=== PATIENT | male | born 1995 | race Caucasian/White ===

== ENCOUNTER 2018-09-26 12:25 | Emergency (ER) | payer MEDICAID, SELFPAY ==
--- NOTE | 2018-09-26 12:28 | NUR.NOTE ---
pt is here with care provider from [facility] . on Wednesday while working on a transition the transmition 150 lbp dropped on his right hand ROM limited and moderate swelling
[2018-09-26 12:31] VITALS: BP 113/91; PULSE 110; RESP 18; TEMP 36.8; O2SAT 98
--- NOTE | 2018-09-26 12:41 | DI.RAD_ITS ---
SYMPTOMS/DIAGNOSIS: RIGHT HAND PAIN, RADIAL/POSTERIOR ASPECT, S/P CRUSH INJURY ON 09/24/18 RIGHT HAND: Three views were obtained. There is a mildly comminuted fracture of the base of the proximal phalanx of the index finger with mild displacement and dorsal angulation of the main distal fracture fragment. No additional fractures seen. The fracture does not appear to involve the articular surface of the bone.
--- NOTE | 2018-09-26 13:03 | W.ED.GENAD ---
Discharge Plan Disposition Patient Disposition: HOME Condition: Good Discharge Details Chief Complaint: Orthopedic Clinical Impression: Closed fracture of phalanx of right index finger Primary Care Provider: Flaquito David ED Provider: Colin Gaxiola [facility] Meds and New Rx's Prescriptions: Continued divalproex 250 mg tablet,delayed release (DR/EC) 500 mg PO BID Qty: 120 RF: 5 clonidine HCl 0.1 MG tablet 2 tab PO HS Qty: 60 RF: 0 dextroamphetamine-amphetamine [Adderall XR] 20 MG capsule,extended release 24hr 2 cap PO DAILY Qty: 30 RF: 0 fluvoxamine 100 MG tablet 1 tab PO HS Qty: 30 RF: 0 trazodone 50 MG tablet 1 tab PO HS Qty: 90 RF: 0 clonidine HCl 0.1 MG tablet extended release 12 hr 2 tab PO .AM RF: 0 ibuprofen 200 MG tablet 400 mg PO Q8H PRNQty: 30 RF: 0 Discharge Instructions Instructions: Finger Fracture (ED) Additional Instructions: Please keep your fingers gómez taped together at all times except when showering. Hand elevated. Use acetaminophen or ibuprofen for pain as needed. Follow-up with orthopedics in 1 week. Return to ED for increasing pain, numbness, or other concerns. Referrals: Cristi Skinner MD [ [facility] STAFF PHYSICIAN] - Discharge Data Discharge Date/Time-TO BE ENTERED AT DEPARTURE: 09/26/18 14:43 Medical Decision Making X-ray of the right hand is obtained. There is a nondisplaced fracture at the base of the proximal phalanges of the index finger. Case discussed with orthopedics, Dr. Skinner. Will gómez tape the index and long finger together for immobility. Follow-up with orthopedics in 1 week. Keep hand elevated. Ibuprofen or acetaminophen as needed for pain. Return to ED for any problems HPI General Mode of arrival: ambulatory. Date/Time Provider Initiated Documentation: 09/26/18 12:41. Limitations to Documentation: no limitations. Information obtained by: patient. HPI Narrative: Patient presents to ED with right hand pain and swelling after dropping a transmission on it over the weekend. He is left-hand dominant. Swelling has gone down but still quite painful. He denies any other injury. He has no wrist or arm pain. Related Data Home Medications Medication Instructions Recorded Confirmed clonidine HCl 2 tab PO HS #60 tab 08/26/12 08/15/18 dextroamphetamine-amphetamine 2 cap PO DAILY #30 cap 08/26/12 08/15/18 [Adderall XR] fluvoxamine 1 tab PO HS #30 tab 08/26/12 08/15/18 trazodone 1 tab PO HS #90 tab 08/26/12 08/15/18 clonidine HCl 2 tab PO .AM 09/08/13 08/15/18 ibuprofen 400 mg PO Q8H PRN #30 tab 09/03/17 08/15/18 divalproex 250 mg tablet,delayed 500 mg PO BID #120 tab NS 08/15/18 08/15/18 release Previous Rx's Medication Instructions Recorded ibuprofen 400 mg PO Q8H PRN #30 tab 09/03/17 divalproex 250 mg tablet,delayed 500 mg PO BID #120 tab NS 08/15/18 release Allergies Allergy/AdvReac Type Severity Reaction Status Date / Time amoxicillin Allergy Unknown Unverified 08/15/18 13:23 Cephalosporins Allergy Unknown Unverified 08/15/18 13:23 General Stated Complaint: Orthopedic RIDGE: 4 Review of Systems Musculoskeletal Comments: hand pain/swelling Integumentary/Breasts Reports wounds (abrasions) [facility] Medical History ADHD (Chronic) Anxiety (Chronic) Autism (Chronic) Depression (Chronic) OCD (obsessive compulsive disorder) (Chronic) PTSD (post-traumatic stress disorder) (Chronic) Social History Smoking/Tobacco Use Status: Never Alcohol Intake: never Drug use: Never Substance use type: does not use Do you feel safe at home: Yes Do you feel safe in your relationship?: Yes Exam Const General: cooperative, comfortable and no acute distress Orientation: alert and oriented x3 Skin Trauma: abrasion (right hand) and no lacerations Extrem Other: Right hand is swollen especially around the index and long finger region. He is unable to flex or extend the index finger in any meaningful way because of swelling. There is some bruising at the base of those 2 fingers. The wrist is normal with no tenderness and good range of motion. Course Vital Signs Temperature 98.2 F 09/26/18 12:31 Pulse 110 H 09/26/18 12:31 Respiratory Rate 18 05/06/19 12:31 Blood Pressure 113/91 H 09/26/18 12:31 Pulse Oximetry 98 09/26/18 12:31 Temperature 98.2 F 09/26/18 12:31 Temperature Source Skin 09/26/18 12:31 Pulse 110 H 09/26/18 12:31 Respiratory Rate 18 09/26/18 12:31 Respiratory Effort 09/26/18 12:34 Blood Pressure 113/91 H 09/26/18 12:31 Blood Pressure Position Sitting 09/26/18 12:31 Pulse Oximetry 98 09/26/18 12:31 Oxygen Delivery Method Room Air 09/26/18 12:31 Oxygen Flow Rate 0 09/26/18 12:31 Pain Level 5 09/26/18 12:31
--- NOTE | 2018-09-26 13:06 | ED.GENADUL_ITS ---
Discharge Plan Disposition Patient Disposition: HOME Condition: Good Discharge Details Chief Complaint: Orthopedic Clinical Impression: Closed fracture of phalanx of right index finger Primary Care Provider: Flaquito David ED Provider: Colin Gaxiola [facility] Meds and New Rx's Prescriptions: Continued divalproex 250 mg tablet,delayed release (DR/EC) 500 mg PO BID Qty: 120 RF: 5 clonidine HCl 0.1 MG tablet 2 tab PO HS Qty: 60 RF: 0 dextroamphetamine-amphetamine [Adderall XR] 20 MG capsule,extended release 24hr 2 cap PO DAILY Qty: 30 RF: 0 fluvoxamine 100 MG tablet 1 tab PO HS Qty: 30 RF: 0 trazodone 50 MG tablet 1 tab PO HS Qty: 90 RF: 0 clonidine HCl 0.1 MG tablet extended release 12 hr 2 tab PO .AM RF: 0 ibuprofen 200 MG tablet 400 mg PO Q8H PRNQty: 30 RF: 0 Discharge Instructions Instructions: Finger Fracture (ED) Additional Instructions: Please keep your fingers gómez taped together at all times except when shower ing. Hand elevated. Use acetaminophen or ibuprofen for pain as needed. Follow-up with orthopedics in 1 week. Return to ED for increasing pain, numbness, or other concerns. Referrals: Cristi Skinner MD [ [facility] STAFF PHYSICIAN] - Discharge Data Discharge Date/Time-TO BE ENTERED AT DEPARTURE: 09/26/18 14:43 Medical Decision Making X-ray of the right hand is obtained. There is a nondisplaced fracture at the base of the proximal phalanges of the index finger. Case discussed with orthopedics, Dr. Skinner. Will gómez tape the index and long finger together for immobility. Follow-up with orthopedics in 1 week. Keep hand elevated. Ibuprofen or acetaminophen as needed for pain. Return to ED for any problems HPI General Mode of arrival: ambulatory . Date/Time Provider Initiated Documentation: 09/26/18 12:41 . Limitations to Documentation: no limitations . Information obtained by: patient . HPI Narrative: Patient presents to ED with right hand pain and swelling after dropping a transmission on it over the weekend. He is left-hand dominant. Swelling has gone down but still quite painful. He denies any other injury. He has no wrist or arm pain. Related Data Home Medications Medication Instructions Recorded Confirmed clonidine HCl 2 tab PO HS #60 tab 08/26/12 08/15/18 dextroamphetamine-amphetamine 2 cap PO DAILY #30 cap 08/26/12 08/15/18 [Adderall XR] fluvoxamine 1 tab PO HS #30 tab 08/26/12 08/15/18 trazodone 1 tab PO HS #90 tab 08/26/12 08/15/18 clonidine HCl 2 tab PO .AM 09/08/13 08/15/18 ibuprofen 400 mg PO Q8H PRN #30 tab 09/03/17 08/15/18 divalproex 250 mg tablet,delayed 500 mg PO BID #120 tab NS 08/15/18 08/15/18 release Previous Rx's Medication Instructions Recorded ibuprofen 400 mg PO Q8H PRN #30 tab 09/03/17 divalproex 250 mg tablet,delayed 500 mg PO BID #120 tab NS 08/15/18 release Allergies Allergy/AdvReac Type Severity Reaction Status Date / Time amoxicillin Allergy Unknown Unverified 08/15/18 13:23 Cephalosporins Allergy Unknown Unverified 08/15/18 13:23 General Stated Complaint: Orthopedic RIDGE: 4 Review of Systems Musculoskeletal Comments: hand pain/swelling Integumentary/Breasts Reports wounds (abrasions) [facility] Medical History ADHD (Chronic) Anxiety (Chronic) Autism (Chronic) Depression (Chronic) OCD (obsessive compulsive disorder) (Chronic) PTSD (post-traumatic stress disorder) (Chronic) Social History Smoking/Tobacco Use Status: Never Alcohol Intake: never Drug use: Never Substance use type: does not use Do you feel safe at home: Yes Do you feel safe in your relationship?: Yes Exam Const General: cooperative, comfortable and no acute distress Orientation: alert and oriented x3 Skin Trauma: abrasion (right hand) and no lacerations Extrem Other: Right hand is swollen especially around the index and long finger region. He is unable to flex or extend the index finger in any meaningful way because of swelling. There is some bruising at the base of those 2 fingers. The wrist is normal with no tenderness and good range of motion. Course Vital Signs Temperature 98.2 F 09/26/18 12:31 Pulse 110 H 09/26/18 12:31 Respiratory Rate 18 09/26/18 12:31 Blood Pressure 113/91 H 09/26/18 12:31 Pulse Oximetry 98 09/26/18 12:31 Temperature 98.2 F 09/26/18 12:31 Temperature Source Skin 09/26/18 12:31 Pulse 110 H 09/26/18 12:31 Respiratory Rate 18 09/26/18 12:31 Respiratory Effort 09/26/18 12:34 Blood Pressure 113/91 H 09/26/18 12:31 Blood Pressure Position Sitting 09/26/18 12:31 Pulse Oximetry 98 09/26/18 12:31 Oxygen Delivery Method Room Air 09/26/18 12:31 Oxygen Flow Rate 0 09/26/18 12:31 Pain Level 5 09/26/18 12:31
[2018-09-26 14:43] VITALS: BP 113/91; PULSE 110; RESP 18; TEMP 36.6; O2SAT 98
== END 2018-09-26 14:43 | disposition home or self-care (01) ==
PROVIDERS: Emergency Provider Emergency Medicine; PCP Family Medicine
DX: S62.640A Nondisplaced fracture of proximal phalanx of right index finger, initial encounter for closed fracture (principal); W22.8XXA Striking against or struck by other objects, initial encounter
CPT/HCPCS: 26720; 73130

== ENCOUNTER 2018-11-01 09:54 | Outpatient (CLI) | payer MEDICAID, SELFPAY ==
--- NOTE | 2018-11-01 09:45 | DI.RAD_ITS ---
SYMPTOM/DIAGNOSIS: F/U FX RIGHT INDEX FINGER: When compared with the previous examination of 09/26/2018 there has been no change in the appositional alignment at the fracture site in the proximal metaphysis of the proximal phalanx of the index finger.
--- NOTE | 2018-11-02 12:50 | W.PREOPHP ---
Date of service: 11/02/18 Time of Service: 12:50 Assessment and Plan (1) Finger fracture, right: Current visit: Yes Status: Acute A// Dorsally displaced (30-35% angulation), proximal phalanx fracture of right index finger. Following an assessment by Dr. Skinner and discussion regarding the procedure, to prevent permanent deformity the patient has elected to have his right finger pinned to stabilize the fracture. P// Right index finger pinning with Dr. Skinner. Qualifiers: Finger: index finger Fracture alignment: displaced Fracture healing: with delayed healing Fracture type: closed Phalanx: proximal History of Present Illness Chief Complaint: Right index Finger Fracture Narrative: 23 y/o, left hand dominant, male with history of seizure disorder, autism, anxiety, depression, OCD, ADHD and PTSD presents for pre-op H&P for Right index finger pinning with Dr. Skinner following a crush injury in the beginning of September 2018. He is accompanied today by his transitions rn care coordinator. He was seen initially in the ER on 09/26/18 with a non-displaced fracture of his proximal phalanx that is extra-articular. He was seen in follow up in the Orthopedic Clinic and was instructed in gómez taping his index finger on 10/04/18. He returned to the clinic with complaints of continued pain in his right index finger at which time X-ray showed that his fracture had settled dorsally with 30-35% angulation and to prevent intermediate deformity pinning of his right finger was recommended. He reports that he has nocturnal seizures and is not aware of when these occur. His caregiver denies observing any recent seizure activity at night. Review of Systems Constitutional Denies chills, Denies fever(s), Denies frequent falls, Denies night sweats and Denies weight loss Eyes Denies loss of vision ENT Denies abnormal hearing, Denies dysphagia, Denies hearing loss, Denies nasal congestion and Denies neck pain Cardiovascular Denies chest pain at rest, Denies chest pain with activity, Denies syncope, Denies dyspnea, Denies dyspnea on exertion and Denies paroxysmal nocturnal dyspnea Respiratory Denies cough, Denies dyspnea and Denies dyspnea on exertion Gastrointestinal Denies abdominal pain, Denies melena, Denies hematochezia, Denies change in bowel habits, Denies constipation, Denies dysphagia and Denies diarrhea Genitourinary Denies urinary frequency, Denies urinary hesitancy and Denies urinary urgency Musculoskeletal Denies neck pain Integumentary/Breasts Denies bleeding lesions, Denies non-healing lesions, Denies rash and Denies unusual bruising Neurologic Denies abnormal hearing, Denies syncope, Denies frequent falls and Denies loss of vision Hematologic/Lymphatic Denies easy bleeding and Denies easy bruising PFSH Medical History History of fracture of finger (Resolved) History of wrist fracture (Resolved) ADHD (Chronic) Anxiety (Chronic) Autism (Chronic) Depression (Chronic) OCD (obsessive compulsive disorder) (Chronic) PTSD (post-traumatic stress disorder) (Chronic) Social History Smoking/Tobacco Use Status: Never Alcohol Intake: never Drug use: Never Substance use type: does not use Do you feel safe at home: Yes Do you feel safe in your relationship?: Yes Meds Home Medications Medication Instructions Recorded Confirmed Type clonidine HCl 2 tab PO HS #60 tab 08/26/12 11/01/18 History dextroamphetamine-amphetamine 2 cap PO DAILY #30 cap 08/26/12 11/02/18 History [Adderall XR] fluvoxamine 1 tab PO HS #30 tab 08/26/12 11/02/18 History trazodone 1 tab PO HS #90 tab 08/26/12 11/02/18 History clonidine HCl 2 tab PO .AM 09/08/13 11/02/18 History ibuprofen 400 mg PO Q8H PRN #30 tab 09/03/17 11/02/18 Rx divalproex 250 mg tablet,delayed 500 mg PO BID #120 tab NS 08/15/18 11/02/18 Rx release cholecalciferol (vitamin D3) 1,000 unit PO DAILY 11/02/18 11/02/18 History [Vitamin D3] Allergies Allergy/AdvReac Type Severity Reaction Status Date / Time amoxicillin Allergy Unknown Unverified 11/01/18 12:52 Cephalosporins Allergy Unknown Unverified 11/02/18 12:51 Exam Const General: cooperative, healthy appearing and no acute distress Orientation: alert and oriented x3 HENMT Head: normal to inspection, no abrasions and no raccoon eyes Ears: hearing grossly normal bilaterally General nose exam: external nose normal and no nasal discharge noted Resp Effort & Inspection: normal respiratory effort, no audible wheezes and no cough Auscultation: clear to auscultation bilaterally Cardio Jugular venous pressure: no JVD Rate: regular rate Rhythm: regular rhythm Heart Sounds: S1 normal, S2 normal, no click and no murmurs GI Inspection: normal to inspection and non-distended Palpation: soft, no guarding and nontender Auscultation: normal bowel sounds Skin Lesions: no lesions (small cuts on his finger tips of his right hand ) Rashes: rash noted Neuro General: alert, oriented x3 and gait normal Cognition: normal cognition Speech: speech normal Extrem General: normal to inspection Right upper extremity: hand (Right- Index finger; (+) swelling )
== END 2018-11-01 10:14 ==
PROVIDERS: PCP Family Medicine; Visit Provider Physician Assistant Surgical
DX: S62.640D Nondisplaced fracture of proximal phalanx of right index finger, subsequent encounter for fracture with routine healing (principal)
CPT/HCPCS: NC; 73140

== ENCOUNTER 2018-11-02 12:30 | Day surgery (SDC) | payer MEDICAID, SELFPAY ==
[2018-11-02 12:58] VITALS: BP 139/87; PULSE 77; RESP 18; TEMP 36.8; O2SAT 96
[2018-11-02] MEDS: Lactated Ringers 1,000 ML 80 ML IV (13:08)
--- NOTE | 2018-11-02 13:10 | DI.RAD_ITS ---
SYMPTOMS/DIAGNOSIS: DORSALLY DISPLACED PROXIMAL PHALANX FX, RIGHT INDEX FINGER RIGHT FINGER: Comparison is 11/01/18. Fluoroscopy was utilized by Dr. Skinner during the percutaneous pinning of the fracture involving the proximal phalanx of the right index finger. Please refer to the procedure report for complete details.
[2018-11-02] MEDS: ceFAZolin 1 GM/50 ML BAG IVPB (14:20)
--- NOTE | 2018-11-02 15:06 | W.PM.DSUDISC ---
Discharge Plan Disposition Patient Disposition: HOME Condition: Good Discharge Details Reason For Visit: closed red/perc pinning Fx prox phalanx RIF Attending Provider: Cristi Skinner Primary Care Provider: Flaquito David [facility] Meds and New Rx's Prescriptions: New hydrocodone-acetaminophen 5-325 mg tablet 1 tab PO Q6H PRN (Reason: pain) Qty: 7 RF: 0 No Action divalproex 250 mg tablet,delayed release (DR/EC) 500 mg PO BID Qty: 120 RF: 5 clonidine HCl 0.1 MG tablet 2 tab PO HS Qty: 60 RF: 0 dextroamphetamine-amphetamine [Adderall XR] 20 MG capsule,extended release 24hr 2 cap PO DAILY Qty: 30 RF: 0 fluvoxamine 100 MG tablet 1 tab PO HS Qty: 30 RF: 0 trazodone 50 MG tablet 1 tab PO HS Qty: 90 RF: 0 clonidine HCl 0.1 MG tablet extended release 12 hr 2 tab PO .AM RF: 0 ibuprofen 200 MG tablet 400 mg PO Q8H PRNQty: 30 RF: 0 cholecalciferol (vitamin D3) [Vitamin D3] 1,000 unit Capsule 1,000 unit PO DAILY RF: 0 Discharge Instructions Additional Instructions: Elevate R hand above heart level as much as possible overnite tonite. Keep dressings and splint dry and intact until return. Cover with plastic bag sealed with large rubber band around the forearm to shower. Follow up with in 2 weeks. Take tylenol or ibuprofen for mild pain. Take hydrocodone for breakthru pain, if needed. Referrals: Cristi Skinner MD [ [facility] STAFF PHYSICIAN] - (f/u in 2 weeks.) Equipment/Supplies: Splint Activity:: Activity as Tolerated Remove Dressings/Wound Care:: Do Not Remove Shower/Bathe:: Cover Diet:: As Tolerated Discharge Orders Discharge Orders: Discharge Order (Routine); Ordered 11/02/18 Ordered By: Cristi Skinner DS: Diagnosis Discharge Diagnosis (1) Finger fracture, right: Status: Acute
[2018-11-02 15:21] VITALS: BP 107/64; PULSE 51; RESP 13; TEMP 36.2; O2SAT 100
[2018-11-02 15:26] VITALS: BP 117/74; PULSE 56; RESP 16; TEMP 36.2; O2SAT 100
[2018-11-02 15:31] VITALS: BP 126/80; PULSE 59; RESP 16; TEMP 36.2; O2SAT 99
[2018-11-02 15:45] VITALS: BP 121/80; PULSE 62; RESP 12; TEMP 36.4; O2SAT 100
[2018-11-02 16:15] VITALS: BP 128/81; PULSE 63; RESP 16; TEMP 36.3; O2SAT 100
[2018-11-02] MEDS: Acetaminophen 325 MG TAB 650 MG PO (16:22)
--- NOTE | 2018-11-03 07:07 | ROE_ITS ---
REPORT OF OPERATIVE PROCEDURE DATE OF PROCEDURE November 02, 2018 PREOPERATIVE DIAGNOSIS: Displaced fracture proximal phalanx, right index finger. POSTOPERATIVE DIAGNOSIS: Displaced fracture proximal phalanx, right index finger. PROCEDURES: Closed reduction and percutaneous pinning of fracture proximal phalanx of the right index finger. Application of short arm splint. ANESTHESIA: General, Pina Woods C.R.N.A. SURGEON: Cristi Skinner M.D. INDICATIONS: This is a 23-year-old developmentally delayed young man who sustained an extraarticular fracture to t he base of the right index finger approximately four weeks ago. The fracture was well alined at that time. His index finger was gómez taped to his middle finger and he was told to continue this treatmen t for four to five weeks. The patient was seen in followup and it was noted that he had not been comp liant with gómez taping. He was then noted to have a swan neck-type of deformity of the finger due to hyperextension of the index finger at the fracture site. There was apex volar angulation measuring 3 0 degrees at the fracture site. On exam, I could correct the angulation because there was still motio n through the fracture site. Furthermore, when the MP joint is flexed, the patient was able to active ly extend his PIP joint and correct the [place] deformity. I explained to Denis and his mother, rodney salazar the deformity of the PIP joint was secondary to the hyperextension at the fracture. The fracture ne eded to be reduced to restore full function to the right index finger. There was enough motion throug h the fracture site that I felt that I could accomplish this with closed reduction and percutaneous p inning of the fracture. They agreed with my recommendations. PROCEDURE DESCRIPTION: The patient was taken to the Operating Room on 11/02/18. He was placed supine on the Operating Table a nd a general anesthetic was administered. The right hand and forearm were prepped and draped free in the usual sterile fashion. Using mini C-arm image intensification control, I performed a closed reduction clinically reducing th e apex volar angulation of the proximal phalanx fracture. I flexed the proximal phalanx of the MP chaya nt to about 80 degrees or so. I then percutaneously placed a 0.062 K-wire from proximal to the distal across the metacarpal head, across the fracture site and into the proximal phalanx. Good position of the 0.062 K-wire was confirmed within the proximal phalanx, also confirmed that the fracture was wel l reduced. I then placed a 0.045 K-wire obliquely across the fracture, again percutaneously across th e metacarpal head into the proximal phalanx. This was to prevent rotation to the fracture. This pin w as confirmed to be within the bone and across the fracture with the mini C-arm image intensifier. At this point, I infiltrated around the pin sites and around the metacarpal neck with 0.5% Marcaine with epinephrine solution for postoperative analgesia. Using an #11-blade, I performed releasing incisions around the pins. The pin sites were dressed with Xeroform gauze. I cut the pins short and applied Pin Balls. With the MP joint transfixed, I was able to get full passive extension of the PIP joint. The pins were then padded with gauze 4x4s, and then fluff gauze 4x4s were placed between the fingers and wrapped with a Kerlix bandage. A volar fiberglas s splint was then applied supporting the fingers in the intrinsic Plus position at the MP joint. The splint was fashioned so it carried around the radial side of the index finger. The splint was applied with a 3-inch Jaylen bandage. The patient's anesthesia was reversed without complication. He was discharged to the Recovery Room in good condition. The patient was discharged home from the Day Surgery Unit when fully recovered from his general anest hesia. Instructions were given to his caretakers to keep the splint and dressings dry and intact, and in nerissa ce until he follows up in the office in two weeks. They are instructed to try to elevate his right dominguez nd above heart level as much as possible overnight tonight. He will take ibuprofen and Tylenol for mild pain. He was given a prescription for breakthrough pain o f hydrocodone with APAP 5/325, 1 tablet every 6 hours as needed.
== END 2018-11-02 17:02 | disposition home or self-care (01) ==
PROVIDERS: PCP Family Medicine; Visit Provider Orthopaedic Surgery
PROC: (CPT 26727; principal; 2018-11-02 15:30)
DX: S62.610A Displaced fracture of proximal phalanx of right index finger, initial encounter for closed fracture (principal); X58.XXXA Exposure to other specified factors, initial encounter
CPT/HCPCS: 26735; 73140; J0690; J1885; J2250; J3010

== ENCOUNTER 2018-11-16 10:18 | Outpatient (CLI) | payer MEDICAID, SELFPAY ==
--- NOTE | 2018-11-16 10:15 | DI.RAD_ITS ---
SYMPTOMS/DIAGNOSIS: F/U PERCUTANEOUS PINNING RIGHT HAND: Two views were obtained and show pin fixation transfixing fracture fragments of the proximal phalanx of the index finger with no gross interval change in alignment in comparison with examination of 11/02 which was a C-arm study.
== END 2018-11-16 10:38 ==
PROVIDERS: PCP Family Medicine; Visit Provider Orthopaedic Surgery
DX: S62.640D Nondisplaced fracture of proximal phalanx of right index finger, subsequent encounter for fracture with routine healing (principal)
CPT/HCPCS: 73120

== ENCOUNTER 2018-11-27 22:59 | Inpatient (IN) | payer MEDICAID, SELFPAY ==
--- NOTE | 2018-11-27 23:14 | W.ED.GENAD ---
Discharge Plan Disposition Patient Disposition: [facility] INPATIENT Condition: Poor Discharge Details Chief Complaint: Orthopedic Clinical Impression: Finger fracture, right, Post-operative infection Primary Care Provider: Flaquito David ED Provider: Serenity Ramirez Home Meds and New Rx's Prescriptions: No Action divalproex 250 mg tablet,delayed release (DR/EC) 500 mg PO BID Qty: 120 RF: 5 clonidine HCl 0.1 MG tablet 2 tab PO HS Qty: 60 RF: 0 dextroamphetamine-amphetamine [Adderall XR] 20 MG capsule,extended release 24hr 2 cap PO DAILY Qty: 30 RF: 0 fluvoxamine 100 MG tablet 1 tab PO HS Qty: 30 RF: 0 trazodone 50 MG tablet 1 tab PO HS Qty: 90 RF: 0 clonidine HCl 0.1 MG tablet extended release 12 hr 2 tab PO .AM RF: 0 ibuprofen 200 MG tablet 400 mg PO Q8H PRNQty: 30 RF: 0 cholecalciferol (vitamin D3) [Vitamin D3] 1,000 unit Capsule 1,000 unit PO DAILY RF: 0 Medical Decision Making Patient is a 23-year-old male presenting today with chief complaint of right hand pain. Patient is left-hand dominant. Patient initially fractured his right hand on 09/26/2018. Subsequently underwent surgical intervention with pin placement for the fracture on 11/02/2018. He was last seen by orthopedics on 11/20/2018 at which time he has been reporting to heal well. Patient reports that pain began increasing yesterday. Is also noted swelling and erythema the dorsum of the hand. This is over the area of the patient's inserted hardware. Patient has a 2 pins in the dorsum aspect of the hand around distally through the second digit MCP joint. It is warm to the touch. No fluid can be expressed. Patient appears nontoxic and is afebrile. I am concerned for cellulitis, also concern for osteomyelitis given the placement of hardware. Feel the patient needs IV antibiotics. Plan to give IV vancomycin, x-ray, obtain labs. Will consult with hospitalist for admission with orthopedic consult tomorrow. X-ray reviewed by radiologist FINDINGS: Bones/joints: Healing fracture proximal second phalanx. Soft tissues: Soft tissue swelling around the surgical site. IMPRESSION: Soft tissue swelling. No evidence of soft tissue gas. Discussed these findings with the patient his caregiver. Patient currently receiving vancomycin. He is elevating ice in the hand. Plan to consult with hospitalist regarding possible admission for cellulitis with concern for bleeding of osteomyelitis. Labs concerning for a CRP of 5.3. No leukocytosis. GFR is over 60. Plan discussed with hospitalist regarding admission for continued IV antibiotics and orthopedic follow-up. Consulted with hospitalist who agrees to admission for continued antibiotics and monitoring of patient with concern for infected hardware HPI General Mode of arrival: ambulatory. Date/Time Provider Initiated Documentation: 11/27/18 23:14. Limitations to Documentation: no limitations. Information obtained by: patient, family (accompanied by home care provider) and RN notes reviewed. History of Present Illness 23 year old M presents to the emergency department with the chief complaint of right hand pain, described as severe, with intensity rated at 10. Quality is described as aching, and is localized to the right and upper extremity. Patient reports no radiation. Patient started experiencing this day(s) (1) and it has been constant. No relieving factors improve symptom(s), No exacerbating factors reported . Patient notes rash; denies cough, fever/chills, loss of appetite, nausea/vomiting, shortness of breath and weakness. Patient did receive the following treatments prior to arrival, none Related Data Home Medications Medication Instructions Recorded Confirmed clonidine HCl 2 tab PO HS #60 tab 08/26/12 11/27/18 dextroamphetamine-amphetamine 2 cap PO DAILY #30 cap 08/26/12 11/27/18 [Adderall XR] fluvoxamine 1 tab PO HS #30 tab 08/26/12 11/27/18 trazodone 1 tab PO HS #90 tab 08/26/12 11/27/18 clonidine HCl 2 tab PO .AM 09/08/13 11/27/18 ibuprofen 400 mg PO Q8H PRN #30 tab 09/03/17 11/27/18 divalproex 250 mg tablet,delayed 500 mg PO BID #120 tab NS 08/15/18 11/27/18 release cholecalciferol (vitamin D3) 1,000 unit PO DAILY 11/02/18 11/27/18 [Vitamin D3] Previous Rx's Medication Instructions Recorded ibuprofen 400 mg PO Q8H PRN #30 tab 09/03/17 divalproex 250 mg tablet,delayed 500 mg PO BID #120 tab NS 08/15/18 release Allergies Allergy/AdvReac Type Severity Reaction Status Date / Time amoxicillin Allergy Unknown Unverified 11/16/18 10:11 Cephalosporins Allergy Unknown Unverified 11/16/18 10:11 General RIDGE: 4 Review of Systems Constitutional Reports as per HPI, Denies chills, Denies fever(s), Denies headache(s) and Denies weakness ENT Denies headache(s) Cardiovascular Reports as per HPI Respiratory Reports as per HPI and Denies cough Musculoskeletal Reports as per HPI and Denies tingling Integumentary/Breasts Reports as per HPI, Reports erythema and Reports skin swelling Neurologic Reports as per HPI, Denies headache(s), Denies tingling, Denies paresthesias and Denies weakness [facility] Medical History ADHD (Chronic) Anxiety (Chronic) Autism (Chronic) Depression (Chronic) OCD (obsessive compulsive disorder) (Chronic) PTSD (post-traumatic stress disorder) (Chronic) History of fracture of finger (Resolved) History of wrist fracture (Resolved) Social History Smoking/Tobacco Use Status: Never Alcohol Intake: never Drug use: Never Substance use type: does not use Do you feel safe at home: Yes Do you feel safe in your relationship?: Yes Exam Const General: cooperative, healthy appearing, comfortable, no acute distress, well developed and well groomed Nutritional Appearance: average body habitus and well nourished Orientation: alert and awake Resp Effort & Inspection: normal respiratory effort, able to speak in complete sentences and no respiratory distress Cardio Rate: regular rate Rhythm: regular rhythm Skin General skin exam: erythema (dorsal right hand along radial side, extending down 2nd digit) Neuro General: alert and awake Cognition: normal cognition Speech: speech normal Gait: normal gait Motor: muscle tone normal throughout Sensory Exam: no sensory deficits noted Extrem Right upper extremity: normal capillary refill; abnormal to inspection (skin changes as above), ROM limited (pins in PIP 2nd digit immobilizig) and joint enlargement noted (swelling PIP joint) Psych Appearance: grossly normal and well kempt Mental Status: mental status grossly normal Speech and Movement: speech and movement normal
[2018-11-27 23:15] VITALS: BP 124/74; PULSE 81; RESP 16; TEMP 36.1; O2SAT 99
--- NOTE | 2018-11-27 23:19 | ED.GENADUL_ITS ---
Discharge Plan Disposition Patient Disposition: [facility] INPATIENT Condition: Poor Discharge Details Chief Complaint: Orthopedic Clinical Impression: Finger fracture, right, Post-operative infection Primary Care Provider: Flaquito David ED Provider: Serenity Ramirez Home Meds and New Rx's Prescriptions: No Action divalproex 250 mg tablet,delayed release (DR/EC) 500 mg PO BID Qty: 120 RF: 5 clonidine HCl 0.1 MG tablet 2 tab PO HS Qty: 60 RF: 0 dextroamphetamine-amphetamine [Adderall XR] 20 MG capsule,extended release 24hr 2 cap PO DAILY Qty: 30 RF: 0 fluvoxamine 100 MG tablet 1 tab PO HS Qty: 30 RF: 0 trazodone 50 MG tablet 1 tab PO HS Qty: 90 RF: 0 clonidine HCl 0.1 MG tablet extended release 12 hr 2 tab PO .AM RF: 0 ibuprofen 200 MG tablet 400 mg PO Q8H PRNQty: 30 RF: 0 cholecalciferol (vitamin D3) [Vitamin D3] 1,000 unit Capsule 1,000 unit PO DAILY RF: 0 Medical Decision Making Patient is a 23-year-old male presenting today with chief complaint of right hand pain. Patient is left-hand dominant. Patient initially fractured his right hand on 09/26/2018. Subsequently underwent surgical intervention with pin placement for the fracture on 11/02/2018. He was last seen by orthopedics on 11/20/2018 at which time he has been reporting to heal well. Patient reports that pain began increasing yesterday. Is also noted swelling and erythema the dorsum of the hand. This is over the area of the patient's inserted hardware. Patient has a 2 pins in the dorsum aspect of the hand around distally through the second digit MCP joint. It is warm to the touch. No fluid can be expressed. Patient appears nontoxic and is afebrile. I am concerned for cellulitis, also concern for osteomyelitis given the placement of hardware. Feel the patient needs IV antibiotics. Plan to give IV vancomycin, x-ray, obtain labs. Will consult with hospitalist for admission with orthopedic cons ult tomorrow. X-ray reviewed by radiologist FINDINGS: Bones/joints: Healing fracture proximal second phalanx. Soft tissues: Soft tissue swelling around the surgical site. IMPRESSION: Soft tissue swelling. No evidence of soft tissue gas. Discussed these findings with the patient his caregiver. Patient currently receiving vancomycin. He is elevating ice in the hand. Plan to consult with hospitalist regarding possible admission for cellulitis with concern for bleeding of osteomyelitis. Labs concerning for a CRP of 5.3. No leukocytosis. GFR is over 60. Plan discussed with hospitalist regarding admission for continued IV antibiotics and orthopedic follow-up. Consulted with hospitalist who agrees to admission for continued antibiotics and monitoring of patient with concern for infected hardware HPI General Mode of arrival: ambulatory . Date/Time Provider Initiated Documentation: 11/27/18 23:14 . Limitations to Documentation: no limitations . Information obtained by: patient, family (accompanied by home care provider) and RN notes reviewed . History of Present Illness 23 year old M presents to the emergency department with the chief complaint of right hand pain, described as severe, with intensity rated at 10. Quality is described as aching, and is localized to the right and upper extremity. Patient reports no radiation. Patient started experiencing this day(s) (1) and it has been constant. No relieving factors improve symptom(s), No exacerbating factors reported . Patient notes rash; denies cough, fever/chills, loss of appetite, nausea/vomiting, shortness of breath and weakness. Patient did receive the following treatments prior to arrival, none Related Data Home Medications Medication Instructions Recorded Confirmed clonidine HCl 2 tab PO HS #60 tab 08/26/12 11/27/18 dextroamphetamine-amphetamine 2 cap PO DAILY #30 cap 08/26/12 11/27/18 [Adderall XR] fluvoxamine 1 tab PO HS #30 tab 08/26/12 11/27/18 trazodone 1 tab PO HS #90 tab 08/26/12 11/27/18 clonidine HCl 2 tab PO .AM 09/08/13 11/27/18 ibuprofen 400 mg PO Q8H PRN #30 tab 09/03/17 11/27/18 divalproex 250 mg tablet,delayed 500 mg PO BID #120 tab NS 08/15/18 11/27/18 release cholecalciferol (vitamin D3) 1,000 unit PO DAILY 11/02/18 11/27/18 [Vitamin D3] Previous Rx's Medication Instructions Recorded ibuprofen 400 mg PO Q8H PRN #30 tab 09/03/17 divalproex 250 mg tablet,delayed 500 mg PO BID #120 tab NS 08/15/18 release Allergies Allergy/AdvReac Type Severity Reaction Status Date / Time amoxicillin Allergy Unknown Unverified 11/16/18 10:11 Cephalosporins Allergy Unknown Unverified 11/16/18 10:11 General RIDGE: 4 Review of Systems Constitutional Reports as per HPI, Denies chills, Denies fever(s), Denies headache(s) and Denies weakness ENT Denies headache(s) Cardiovascular Reports as per HPI Respiratory Reports as per HPI and Denies cough Musculoskeletal Reports as per HPI and Denies tingling Integumentary/Breasts Reports as per HPI, Reports erythema and Reports skin swelling Neurologic Reports as per HPI, Denies headache(s), Denies tingling, Denies paresthesias and Denies weakness [facility] Medical History ADHD (Chronic) Anxiety (Chronic) Autism (Chronic) Depression (Chronic) OCD (obsessive compulsive disorder) (Chronic) PTSD (post-traumatic stress disorder) (Chronic) History of fracture of finger (Resolved) History of wrist fracture (Resolved) Social History Smoking/Tobacco Use Status: Never Alcohol Intake: never Drug use: Never Substance use type: does not use Do you feel safe at home: Yes Do you feel safe in your relationship?: Yes Exam Const General: cooperative, healthy appearing, comfortable, no acute distress, well developed and well groomed Nutritional Appearance: average body habitus and well nourished Orientation: alert and awake Resp Effort & Inspection: normal respiratory effort, able to speak in complete sentences and no respiratory distress Cardio Rate: regular rate Rhythm: regular rhythm Skin General skin exam: erythema (dorsal right hand along radial side, extending down 2nd digit) Neuro General: alert and awake Cognition: normal cognition Speech: speech normal Gait: normal gait Motor: muscle tone normal throughout Sensory Exam: no sensory deficits noted Extrem Right upper extremity: normal capillary refill; abnormal to inspection (skin changes as above), ROM limited (pins in PIP 2nd digit immobilizig) and joint enlargement noted (swelling PIP joint) Psych Appearance: grossly normal and well kempt Mental Status: mental status grossly normal Speech and Movement: speech and movement normal
--- NOTE | 2018-11-27 23:40 | DI.RAD_ITS ---
SYMPTOM/DIAGNOSIS: CELLULITIS BONY HARDWARE 2&3 RIGHT HAND: 11/27 Three views were obtained. There are fixation pins transfixing the head of the 2nd metacarpal and proximal phalanx of the index finger. The previously described proximal phalangeal fracture again noted which appears to show increased healing with no change in alignment in comparison with examination of 11/16/18. There is soft tissue swelling of the base of the index finger. No additional significant findings.
[2018-11-28] VITALS (9 sets, daily range): BP systolic 111–143; BP diastolic 64–85; PULSE 70–88; RESP 14–20; TEMP 36.4–37; O2SAT 98–100
--- NOTE | 2018-11-28 00:10 | DI.VRAD_ITS ---
EXAM: XR Right Hand EXAM DATE/TIME: 11/27/2018 11:27 PM CLINICAL HISTORY: 23 years old, male; Finger(s) and hand; Right; Prior surgery; Surgery date: <1 month; Surgery type: Pinning of FX finger; Patient HX: Redness, swelling, and pain TECHNIQUE: Imaging protocol: XR Right hand. Views: 3 or more views. COMPARISON: CR XR hand RT limited 11/16/2018 10:25 AM FINDINGS: Bones/joints: Healing fracture proximal second phalanx. Soft tissues: Soft tissue swelling around the surgical site. IMPRESSION: Soft tissue swelling. No evidence of soft tissue gas. Dictated and Authenticated by: Pranav Wong MD. Ordering:MÓNICA Benton MD
[2018-11-28 00:18] LABS: Abs Immature Grans 0.02 k/cumm (0.0-0.09); Absolute Basophil Count 0.01 k/cumm (0.0-0.2); Absolute Eosinophil Count 0.07 k/cumm (0.0-0.7); Absolute Monocyte Count 1.34 k/cumm (0.11-0.7); Absolute Neutrophil Count 5.64 k/cumm (1.2-6.7); Basophils % 0.1; Eosinophils % 0.8; HCT 41.7 % (40.0-50.0); HGB 15.3 g/dL (13.5-17.5); Immature Grans % 0.2; Lymphocytes % 21.2; Mean Corp. HGB Concentration 36.7 g/dL (32.0-36.0); Mean Corpuscular Hemoglobin 32.2 pg (27.0-33.0); Mean Corpuscular Volume 87.8 fL (80-95); Mean Platelet Volume 12.5 fL (8.0-11.0); Monocytes % 14.9; Neutrophils % 62.8; Platelet Count 110 x1000/uL (130-400); RBC 4.75 m/cumm (4.50-6.00); RBC Distribution Width 12.5 % (11.8-14.1); White Blood Cell Count 8.98 k/cumm (4.4-10.8)
[2018-11-28] MEDS: VANCOMYCIN 1,000 MG in Normal Saline 250 ML 166.6666 MG IVPB (00:27)
[2018-11-28 00:36] LABS: Diff Comment RBC Morph Reviewed; RBC Morphology Normal
[2018-11-28 00:39] LABS: ALT 8 U/L (12-78); AST 10 U/L (15-37); Albumin 3.8 g/dL (3.4-5.0); Alkaline Phosphatase 60 U/L (46-116); Anion Gap 8.8 mmol/L (3-11); BUN 13 mg/dL (7-18); Bilirubin, Total 0.8 mg/dL (0.2-1.0); CO2 26.2 mmol/L (21.0-32.0); Calcium 9.1 mg/dL (8.5-10.1); Chloride 103 mmol/L (98-107); Glucose 106 mg/dL (70-100); Potassium 3.8 mmol/L (3.5-5.1); Sodium 138 mmol/L (136-145); Total Protein 7.6 g/dL (6.4-8.2)
--- NOTE | 2018-11-28 01:04 | W.PM.HP.N ---
Date of service: 11/28/18 Time of Service: 01:04 Assessment and Plan (1) Cellulitis and abscess of finger, unspecified: Start date: 11/27/18 Current visit: Yes Status: Acute This is a 23-year-old gentleman with rapidly progressive infection over his right index finger with percutaneous pins still in place for his displaced fracture of the proximal phalangeal base. He was started on vancomycin in the ED with some slight response over his hand erythema the persistent swelling and erythema over his fingers. We will continue on IV vancomycin and Dr. Skinner will be consulted morning. Plans were to remove his percutaneous pins this mid week. (2) Finger fracture, right: Current visit: Yes Status: Acute Initially nondisplaced and then displaced fracture of the proximal phalanx of the index finger requiring surgical intervention now with secondary infection. Concerns are across myelitis with foreign bodies in place. Patient will be given IV vancomycin with consultation with orthopedics in the morning as stated above. Qualifiers: Encounter type: subsequent encounter Finger: index finger Fracture alignment: displaced Fracture healing: with delayed healing Fracture type: closed Phalanx: proximal Qualified Code(s): S62.610G - Displaced fracture of proximal phalanx of right index finger, subsequent encounter for fracture with delayed healing History of Present Illness Chief Complaint: Numbness with increasing redness over right index finger Narrative: This is a 23-year-old gentleman who had recent fracture of the base of the proximal phalanx and his right index finger when a transmission fell on his finger sustaining a fracture which was non-displaced when first evaluated. He was treated with gómez taping which was not consistently applied and he eventually went to surgery for displacement and deformity of the index finger on November 03, 2018 for a closed reduction and percutaneous pinning. He was to have the pins removed this week on Friday November 30, 2018. He began to have numbness in his right index finger early Wednesday and Wednesday, the day of his emergency room visit, he began to have swelling and erythema over his index finger and then onto his dorsal hand with some discomfort. He reported to the ED with imaging showing no early signs of osteomyelitis or gas formation and his soft tissues and the fracture was still in alignment. He was given vancomycin and admitted for IV antibiotic therapy for cellulitis and possible early osteomyelitis with his pins in place or his previously displaced proximal phalanx fracture. Dr. Skinner did the procedure and will be consulted in the morning. He did have some resolution of the redness over the dorsum of his hand with 1 dose of IV vancomycin in the ED. Review of Systems Review of Systems 13 point review of systems otherwise unrevealing or stable. [facility] Medical History ADHD (Chronic) Anxiety (Chronic) Autism (Chronic) Depression (Chronic) OCD (obsessive compulsive disorder) (Chronic) PTSD (post-traumatic stress disorder) (Chronic) History of fracture of finger (Resolved) History of wrist fracture (Resolved) Social History Smoking/Tobacco Use Status: Never Alcohol Intake: never Drug use: Never Substance use type: does not use Do you feel safe at home: Yes Do you feel safe in your relationship?: Yes Meds Home Medications Medication Instructions Recorded Confirmed Type clonidine HCl 2 tab PO HS #60 tab 08/26/12 11/27/18 History dextroamphetamine-amphetamine 2 cap PO DAILY #30 cap 08/26/12 11/27/18 History [Adderall XR] fluvoxamine 1 tab PO HS #30 tab 08/26/12 11/27/18 History trazodone 1 tab PO HS #90 tab 08/26/12 11/27/18 History clonidine HCl 2 tab PO .AM 09/08/13 11/27/18 History ibuprofen 400 mg PO Q8H PRN #30 tab 09/03/17 11/27/18 Rx divalproex 250 mg tablet,delayed 500 mg PO BID #120 tab NS 08/15/18 11/27/18 Rx release cholecalciferol (vitamin D3) 1,000 unit PO DAILY 11/02/18 11/27/18 History [Vitamin D3] Allergies Allergy/AdvReac Type Severity Reaction Status Date / Time amoxicillin Allergy Unknown Unverified 11/16/18 10:11 Cephalosporins Allergy Unknown Unverified 11/16/18 10:11 Exam Narrative Exam Narrative: General: Patient is thin, in no acute distress and alert and oriented x3. Does have slight trembling and states he feels cold with no previous measured temperature in the ED but possibly having chills indicating body temperature change. HEENT: Normocephalic with eyes revealing pupils equal reactive light symmetrically with extraocular movement intact and sclera anicteric. Ears and nose normal. Oropharynx with pink oral mucosa. Neck: Supple without JVD. Lungs: Clear to auscultation percussion. Heart: Regular rate and rhythm without murmurs or gallops appreciated. Back: Without CVA tenderness with slightly stooped posture. Abdomen: Scaphoid, soft and nontender to palpation with no palpable hepatosplenomegaly. Bowel sounds positive in all quadrants. Genitalia/Rectal: Deferred. Extremities: Without clubbing, cyanosis or edema of lower extremities with upper extremities revealing right hand with swelling of the index and some over the middle finger with erythema and slight edema over the dorsum of the hand in the region of the first and second metatarsals just above the MCP joints. There are orthopedic percutaneous pens x2 inserted into the index finger protruding over the dorsum of the hand behind the MCP of the index finger. Capillary refill is good and radial pulses are intact. Skin: [place], warm and dry except as described over the right hand. Neuro: Cranial nerves II to XII are grossly intact, motor is grossly intact with sensory intact except for some numbness over his right index finger secondary to the infectious process and swelling. Psych: Normal mood and affect at the time of my exam with slightly pressured speech but no appearance of any inattentiveness. Results Imaging Imaging Studies: EXAM: XR Right Hand EXAM DATE/TIME: 11/27/2018 11:27 PM CLINICAL HISTORY: 23 years old, male; Finger(s) and hand; Right; Prior surgery; Surgery date: <1 month; Surgery type: Pinning of FX finger; Patient HX: Redness, swelling, and pain TECHNIQUE: Imaging protocol: XR Right hand. Views: 3 or more views. COMPARISON: CR XR hand RT limited 11/16/2018 10:25 AM FINDINGS: Bones/joints: Healing fracture proximal second phalanx. Soft tissues: Soft tissue swelling around the surgical site. IMPRESSION: Soft tissue swelling. No evidence of soft tissue gas. Dictated and Authenticated by: Pranav Wong MD. Labs : 11/27/18 23:59 11/27/18 23:59 Laboratory Results - last 24 hr 11/27/18 11/27/18 23:59 23:59 WBC 8.98 RBC 4.75 Hgb 15.3 Hct 41.7 MCV 87.8 MCH 32.2 MCHC 36.7 H RDW 12.5 Plt Count 110 L MPV 12.5 H Immature Gran % 0.2 Neutrophils % 62.8 Lymphocytes % 21.2 Monocytes % 14.9 Eosinophils % 0.8 Basophils % 0.1 Absolute Neutrophils 5.64 Absolute Lymphocytes 1.90 Absolute Monocytes 1.34 H Absolute Eosinophils 0.07 Absolute Basophils 0.01 Differential Comment Rbc morph reviewed RBC Morphology Normal Sodium 138 Potassium 3.8 Chloride 103 Carbon Dioxide 26.2 Anion Gap 8.8 BUN 13 Creatinine 0.80 Estimated GFR/1.73 m2 >= 60.00 Glucose 106 H Calcium 9.1 Total Bilirubin 0.8 AST 10 L ALT 8 L Alkaline Phosphatase 60 C-Reactive Protein 5.30 H Total Protein 7.6 Albumin 3.8 Last Vital Signs Temp 36.1 C L 11/27/18 23:15 Pulse 81 11/27/18 23:15 Resp 16 11/27/18 23:15 BP 124/74 11/27/18 23:15 Pulse Ox 99 11/27/18 23:15
[2018-11-28] MEDS: Ibuprofen 200 MG TAB 400 MG PO ×2 (03:43→10:23)
[2018-11-28 07:31] LABS: HCT 40.7 % (40.0-50.0); HGB 14.7 g/dL (13.5-17.5); Mean Corp. HGB Concentration 36.1 g/dL (32.0-36.0); Mean Corpuscular Volume 88.7 fL (80-95); Mean Platelet Volume 11.9 fL (8.0-11.0); Platelet Count 112 x1000/uL (130-400); RBC 4.59 m/cumm (4.50-6.00); RBC Distribution Width 12.6 % (11.8-14.1); White Blood Cell Count 6.35 k/cumm (4.4-10.8)
[2018-11-28 07:56] LABS: ALT 7 U/L (12-78); AST 6 U/L (15-37); Albumin 3.4 g/dL (3.4-5.0); Alkaline Phosphatase 56 U/L (46-116); Anion Gap 8.2 mmol/L (3-11); BUN 11 mg/dL (7-18); Bilirubin, Total 0.7 mg/dL (0.2-1.0); CO2 27.8 mmol/L (21.0-32.0); CREATININE 0.76 mg/dL (0.70-1.30); Calcium 8.8 mg/dL (8.5-10.1); Chloride 104 mmol/L (98-107); Glucose 93 mg/dL (70-100); Potassium 3.8 mmol/L (3.5-5.1); Sodium 140 mmol/L (136-145)
--- NOTE | 2018-11-28 08:25 | PDOC.CMIN ---
- If Service Date Differs Date of service: 11/28/18 Time of Service: 08:25 Care Management Initial Assess REASON FOR HOSPITALIZATION:: cellulitis and abscess of finger PAST MEDICAL HISTORY/PAST SURGICAL HISTORY:: Medical History . ADHD (Chronic). Anxiety (Chronic). Autism (Chronic). Depression (Chronic). OCD (obsessive compulsive disorder) (Chronic). PTSD (post-traumatic stress disorder) (Chronic). History of fracture of finger (Resolved). History of wrist fracture PREVIOUS FUNCTIONAL STATUS/SOCIAL/FAMILY SUPPORTS:: Denis lives in [place] with his critical care technician, Flaquito Virk, and one additional resident. He is currently unemployed. 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 Denis has a guardian through the Office of Public Guardians[employer]. Her name is Willard . CURRENT FUNCTIONAL STATUS:: Denis was visiting with his mother when CM came to visit. He was sitting up in bed watching television. He stated he did not mind being here because he has his own tv and can watch any show he chooses. Where he lives there is only a communal tv. Denis was pleasant and answered questions readily but did not maintain good eye contact. He frequently bowed his head down and seemed to be focusing on his hand. According to Mom Cesia, Denis receives SSI. She stated that she got ir started early because of his disabilities. Denis is independent with ADLs. ADVANCE DIRECTIVES:: None on file Has patient been provided with information about the portal?: No Did the patient sign up for the portal?: No CODE STATUS:: Full Code CODE STATUS COMMENT:: Denis has a guardian: Bessy Mayo INSURANCE COVERAGE / FINANCIAL ISSUES:: Medicaid Vt CURRENT HOME/COMMUNITY SERVICES/EQUIPMENT:: none currently PRIMARY CARE PHYSICIAN:: Flaquito David POTENTIAL DISCHARGE NEEDS:: Follow up with PCP and discharge plan of care PATIENT/FAMILY EDUCATION NEEDS:: Discharge plan, limitations, follow up plan and Ask Me Three. ANTICIPATED BARRIERS TO DISCHARGE:: none identified TRANSPORTATION:: via private vehicle with family when ready PLAN:: Denis remains acute level of care. He is receiving antibiotics for an infection in his right hand following surgery for a fracture with pin placement. He will likely be discharged home with no services when medically ready. CM to continue to support patient, family, care team and discharge planning process.
[2018-11-28] MEDS: Normal Saline Flush 10 ML SYR IVP ×6 (08:42→23:09)
[2018-11-28] MEDS: Normal Saline 500 ML IV (08:42)
[2018-11-28] MEDS: Divalproex 250 MG TABEC 500 MG PO ×2 (08:44→21:11)
--- NOTE | 2018-11-28 09:27 | INITIAL_ITS ---
- If Service Date Differs Date of service: 11/28/18 Time of Service: 08:25 Care Management Initial Assess REASON FOR HOSPITALIZATION:: cellulitis and abscess of finger PAST MEDICAL HISTORY/PAST SURGICAL HISTORY:: Medical History . ADHD (Chronic). Anxiety (Chronic). Autism (Chronic). Depression (Chronic). OCD (obsessive compulsive disorder) (Chronic). PTSD (post-traumatic stress disorder) (Chronic). History of fracture of finger (Resolved). History of wrist fracture PREVIOUS FUNCTIONAL STATUS/SOCIAL/FAMILY SUPPORTS:: Denis lives in [place] with his child care director, Flaquito Virk, and one additional resident. He is currently unemployed. 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 Denis has a guardian through the [employer] of Public [employer]. Her name is Willard . CURRENT FUNCTIONAL STATUS:: Denis was visiting with his mother when CM came to visit. He was sitting up in bed watching television. He stated he did not mind being here because he has his own tv and can watch any show he chooses. Where he lives there is only a communal tv. Denis was pleasant and answered questions readily but did not maintain good eye contact. He frequently bowed his head down and seemed to be focusing on his hand. According to Mom Cesia, Denis receives SSI. She stated that she got ir started early because of his disabilities. Denis is independent with ADLs. ADVANCE DIRECTIVES:: None on file Has patient been provided with information about the portal?: No Did the patient sign up for the portal?: No CODE STATUS:: Full Code CODE STATUS COMMENT:: Denis has a guardian: Bessy Mayo INSURANCE COVERAGE / FINANCIAL ISSUES:: Medicaid Vt CURRENT HOME/COMMUNITY SERVICES/EQUIPMENT:: none currently PRIMARY CARE PHYSICIAN:: Flaquito David POTENTIAL DISCHARGE NEEDS:: Follow up with PCP and discharge plan of care PATIENT/FAMILY EDUCATION NEEDS:: Discharge plan, limitations, follow up plan and Ask Me Three. ANTICIPATED BARRIERS TO DISCHARGE:: none identified TRANSPORTATION:: via private vehicle with family when ready PLAN:: Denis remains acute level of care. He is receiving antibiotics for an infection in his right hand following surgery for a fracture with pin placement. He will likely be discharged home with no services when medically ready. CM to continue to support patient, family, care team and discharge planning process.
[2018-11-28] MEDS: Acetaminophen 325 MG TAB PO (09:47)
[2018-11-28] MEDS: MORPHine 2 MG/ML SYR IVP ×2 (10:34→15:21)
[2018-11-28] MEDS: cloNIDine 0.1 MG TAB 0.2 MG PO ×2 (10:35→21:11)
--- NOTE | 2018-11-28 11:11 | PHARADMIT ---
Admission Pharmacy Clinical Review CELLULITIS RIGHT INDEX FINGER, STATUS POST PERCUTANEOUS Code Status Full Code Current Weight Wgt-69.3 kg Renally Cleared and Narrow Therapeutic Index Meds CrCl~ 139 mL/min Meds-OK QTc Value / Action Taken NONE BP Control, Fever BP- 113/70 max- 36.6C Electrolytes reviewed Na- 140 K+ 3.8 DVT Prophylaxis No (AGE) Opiate Usage / Scheduled Bowel Regimen Ordered No Yes Plt/SCr for Heparin / Enoxaparin Plts-112 SCr- 0.76 INR for Warfarin NA H/H stable, WBC/Bands H&H- 14.7/40.7 WBC- 6.35 Antibiotic appropriateness Vancomycin Cultures and Sensitivities NONE Surgical ABX d/c within 24 hr NA DM control / Insulin Dosing BG- 93 Heart Failure (Check EF%) (LUIS's, B-Block, Diuretics) >(Clonidine) IV to PO Switch No Home Meds Reviewed Yes Home Meds Not Ordered Vit-D, Comments RCRP- 5.30
--- NOTE | 2018-11-28 15:08 | CHAPLAIN ---
Denis was sleeping but I spoke with his mom. She said Denis lives with a caregiver and she lives in another town. I explained my role and offered support.
--- NOTE | 2018-11-28 15:51 | OCONE_ITS ---
Date of service: 11/28/18 Time of Service: 15:48 History of Present Illness Chief Complaint: Painful right hand and right index finger Narrative: . He had a proximal phalanx fracture of the right index finger that displaced. The fracture was transverse extra-articular and quite proximal on proximal phalanx. A closed reduction and percutaneous pinning was performed 0n 11/02/18. The pinning had to go through the metacarpal head and into the proximal phalanx transfixing the MCP joint for reduction. I last saw him in the office on 11/16/18. He had no problems with the pins and the fracture appeared to be healing. Reduction was being maintained. I anticipated removing the pins in 3 weeks from that date. That would have been approximately December 07. On 11/26/2018 he began having pain in the right index finger and hand. He then developed redness and swelling of the hand and presented to the emergency room on 11/27/2018. He was started on IV vancomycin and admitted to the hospitalist. I was then consulted for further treatment. Denis says he is having less pain today. Nursing staff is noted decrease in swelling and erythema. Assessment and Plan (1) Cellulitis and abscess of finger, unspecified: Current visit: Yes Status: Acute Assessment: He developed cellulitis of his right index finger following closed reduction percutaneous pinning of a fracture proximal phalanx on 11/02/2018. Although the x-rays are showing maintenance of alignment and some early healing, I would like to have the pins in for a couple more weeks if possible. If he continues to respond to IV antibiotics I want have to pull the pins. If he does not improve with IV antibiotics I will pull the pins early. Plan: Transfer the patient to my service. Continue with IV vancomycin. Check him tomorrow. If he is improved I would leave the pins in and try to get him until next week before he can pull the pins. If he does not continue to improve pull the pins tomorrow. [facility] Medical History ADHD (Chronic) Anxiety (Chronic) Autism (Chronic) Depression (Chronic) OCD (obsessive compulsive disorder) (Chronic) PTSD (post-traumatic stress disorder) (Chronic) History of fracture of finger (Resolved) History of wrist fracture (Resolved) Social History Smoking/Tobacco Use Status: Never Alcohol Intake: never Drug use: Never Substance use type: does not use Do you feel safe at home: Yes Do you feel safe in your relationship?: Yes Exam Narrative Exam Narrative: There is no drainage from the pins. Dorsum of his hand is swollen as is the proximal portion of the index finger, causing the skin to contact the pin balls. There is erythema as well. The erythema and swelling does not extend past the PIP joint. The pins are not loose. He has good sensation and circulation to the index fingertip. There is no swelling of the other fingers and thumb. Today I fashioned him a new volar fiberglass splint because he left his at home. This will support the index finger and take the stress off the transfixing pins. Results Last Vital Signs Temp 36.7 C 11/28/18 11:10 Pulse 77 11/28/18 11:10 Resp 16 11/28/18 11:10 BP 122/64 11/28/18 11:10 Pulse Ox 98 11/28/18 11:10 Labs : 11/28/18 06:42 11/28/18 06:42 Laboratory Results - last 24 hr 11/27/18 11/27/18 11/28/18 23:59 23:59 06:42 WBC 8.98 RBC 4.75 Hgb 15.3 Hct 41.7 MCV 87.8 MCH 32.2 MCHC 36.7 H RDW 12.5 Plt Count 110 L MPV 12.5 H Immature Gran % 0.2 Neutrophils % 62.8 Lymphocytes % 21.2 Monocytes % 14.9 Eosinophils % 0.8 Basophils % 0.1 Absolute Neutrophils 5.64 Absolute Lymphocytes 1.90 Absolute Monocytes 1.34 H Absolute Eosinophils 0.07 Absolute Basophils 0.01 Differential Comment Rbc morph reviewed RBC Morphology Normal Sodium 138 140 Potassium 3.8 3.8 Chloride 103 104 Carbon Dioxide 26.2 27.8 Anion Gap 8.8 8.2 BUN 13 11 Creatinine 0.80 0.76 Estimated GFR/1.73 m2 >= 60.00 >= 60.00 Glucose 106 H 93 Calcium 9.1 8.8 Total Bilirubin 0.8 0.7 AST 10 L 6 L ALT 8 L 7 L Alkaline Phosphatase 60 56 C-Reactive Protein 5.30 H Total Protein 7.6 7.0 Albumin 3.8 3.4 07/08/19 06:42 WBC 6.35 RBC 4.59 Hgb 14.7 Hct 40.7 MCV 88.7 MCH 32.0 MCHC 36.1 H RDW 12.6 Plt Count 112 L MPV 11.9 H Immature Gran % Neutrophils % Lymphocytes % Monocytes % Eosinophils % Basophils % Absolute Neutrophils Absolute Lymphocytes Absolute Monocytes Absolute Eosinophils Absolute Basophils Differential Comment RBC Morphology Sodium Potassium Chloride Carbon Dioxide Anion Gap BUN Creatinine Estimated GFR/1.73 m2 Glucose Calcium Total Bilirubin AST ALT Alkaline Phosphatase C-Reactive Protein Total Protein Albumin
[2018-11-28] MEDS: Ketorolac 30 MG/ML VIAL IVP ×2 (17:46→23:09)
[2018-11-28] MEDS: traZODone 50 MG TAB PO (21:11)
[2018-11-29] VITALS (7 sets, daily range): BP systolic 96–118; BP diastolic 60–78; PULSE 71–88; RESP 14–18; TEMP 35.8–36.8; O2SAT 97–99
[2018-11-29] MEDS: Normal Saline Flush 10 ML SYR IVP ×5 (06:20→20:28)
[2018-11-29] MEDS: Ketorolac 30 MG/ML VIAL IVP ×2 (06:20→11:55)
[2018-11-29 08:21] LABS: Vancomycin, Trough 19.1 ug/mL (10.0-20.0)
[2018-11-29] MEDS: cloNIDine 0.1 MG TAB 0.2 MG PO ×2 (08:23→21:43)
[2018-11-29] MEDS: Divalproex 250 MG TABEC 500 MG PO ×2 (08:23→21:43)
[2018-11-29] MEDS: Acetaminophen 500 MG TAB 1000 MG PO (08:26)
[2018-11-29] MEDS: Normal Saline 500 ML IV (09:00)
--- NOTE | 2018-11-29 12:39 | NUR.NOTE ---
Nursing Note: Dr Skinner in and pulled the pins from this patient's hand. Per Dr. Skinner the patient's hand looks better than yesterday and that the redness started decreasing even more once the pins had been removed
[2018-11-29] MEDS: VANCOMYCIN 1,250 MG in Normal Saline 250 ML 167.007 ML IVPB (14:47)
--- NOTE | 2018-11-29 15:30 | PDOC.CMPRO ---
- If Service Date Differs Date of service: 11/29/18 Time of Service: 15:30 Care Management Progress Note S/O: Denis was sitting up in bed talking with friends when CM came to see him. He stated the hand feels better but he is still unsure of the plan. Dr. Skinner is supposed to come back and see him later in the day to determine the next course of treatment. He is enjoying his private room and [id number], a luxury he does not have at home. CM will continue to follow. A: Denis is a pleasant 23 year old man admitted to [facility] with an infected finger on 11/28/18. P: Denis remains acute level of care. He is receiving antibiotics for an infection in his right hand following surgery for a fracture with pin placement. He will likely be discharged home with no services when medically ready. CM to continue to support patient, family, care team and discharge planning process.
--- NOTE | 2018-11-29 15:39 | CMPROGNOTE_ITS ---
- If Service Date Differs Date of service: 11/29/18 Time of Service: 15:30 Care Management Progress Note S/O: Denis was sitting up in bed talking with friends when CM came to see him. He stated the hand feels better but he is still unsure of the plan. Dr. Skinner is supposed to come back and see him later in the day to determine the next course of treatment. He is enjoying his private room and [id number], a luxury he does not have at home. CM will continue to follow. A: Denis is a pleasant 23 year old man admitted to [facility] with an infected finger on 11/28/18. P: Denis remains acute level of care. He is receiving antibiotics for an infection in his right hand following surgery for a fracture with pin placement. He will likely be discharged home with no services when medically ready. CM to continue to support patient, family, care team and discharge planning process.
--- NOTE | 2018-11-29 16:02 | W.PM.PROGNOT ---
Date of Service Date of service: 11/29/18 Time of Service: 16:02 Assessment and Plan (1) Cellulitis and abscess of finger, unspecified: Current visit: Yes Status: Acute Assessment: I think the cellulitis is improved. The erythema certainly fading in the hand is less swollen. However he is really anxious about the pin staying in place. Because of his anxiety I think the pin should be pulled. I think he has enough healing at the fracture that it will not displace. Plan: Today I remove the pins crossing his MCP joint of the index finger. There is minimal bleeding from the pin sites no purulence. After I remove the pins the erythema actually is less. I want to continue IV antibiotics overnight tonight. I will allow him to move his finger within the limits of his splint. We will probably discharge him home tomorrow unless a problem arises. And Subjective Interval history since last seen: He is having less pain today compared to yesterday. He is very concerned about the pins in place. Exam Narrative Exam Narrative: The intensity of the erythema is fading to a light pink. Swelling is decreased over the dorsum of his hand and index finger. This is demonstrated by the fact that he now has space between the pinball and the skin up to 3 mm. Yesterday the skin was up against the pinball. He remains afebrile. Objective Objective Clinical Data: Vital Signs Temperature 36.3 C L 11/29/18 15:48 Temperature Source Tympanic 11/29/18 15:48 Pulse 74 11/29/18 15:48 Pulse Rhythm Regular 11/29/18 09:00 Respiratory Rate 18 11/29/18 15:48 Respiratory Effort Non-Labored 11/29/18 09:00 Respiratory Depth Normal 11/29/18 09:00 Respiratory Pattern Normal 11/29/18 09:00 Blood Pressure 118/78 11/29/18 15:48 Pulse Oximetry 97 11/29/18 15:48 Oxygen Delivery Method Room Air 11/29/18 15:48 Oxygen Flow Rate 0 11/29/18 15:48 Pain Level 10 11/29/18 12:55 Comment 11/28/18 03:20 Intake & Output 11/28/18 11/29/18 11/29/18 23:59 11:59 23:59 Intake Total 815.228 / 1885.228 971.767 / 1231.767 260 / 1231.767 Balance 815.228 / 1885.228 971.767 / 1231.767 260 / 1231.767 Weight 68.7 kg Intake: IV 575.228 / 1095.228 561.767 / 581.767 20 / 581.767 Oral 240 / 790 410 / 650 240 / 650 Other: Comment pt voiding independently in the toilet Voiding Methods Toilet Toilet Laboratory Results WBC 6.35 k/cumm (4.4-10.8) 11/28/18 06:42 RBC 4.59 m/cumm (4.50-6.00) 11/28/18 06:42 Hgb 14.7 g/dL (13.5-17.5) 11/28/18 06:42 Hct 40.7 % (40.0-50.0) 11/28/18 06:42 MCV 88.7 fL (80-95) 11/28/18 06:42 MCH 32.0 pg (27.0-33.0) 11/28/18 06:42 MCHC 36.1 g/dL (32.0-36.0) H 11/28/18 06:42 RDW 12.6 % (11.8-14.1) 11/28/18 06:42 Plt Count 112 x1000/uL (130-400) L 11/28/18 06:42 MPV 11.9 fL (8.0-11.0) H 11/28/18 06:42 Immature Gran % 0.2 11/27/18 23:59 Neutrophils % 62.8 11/27/18 23:59 Lymphocytes % 21.2 11/27/18 23:59 Monocytes % 14.9 11/27/18 23:59 Eosinophils % 0.8 11/27/18 23:59 Basophils % 0.1 11/27/18 23:59 Absolute Neutrophils 5.64 k/cumm (1.2-6.7) 11/27/18 23:59 Absolute Lymphocytes 1.90 k/cumm (1.2-3.4) 11/27/18 23:59 Absolute Monocytes 1.34 k/cumm (0.11-0.7) H 11/27/18 23:59 Absolute Eosinophils 0.07 k/cumm (0.0-0.7) 11/27/18 23:59 Absolute Basophils 0.01 k/cumm (0.0-0.2) 11/27/18 23:59 Differential Comment Rbc morph reviewed 11/27/18 23:59 RBC Morphology Normal 11/27/18 23:59 Sodium 140 mmol/L (136-145) 11/28/18 06:42 Potassium 3.8 mmol/L (3.5-5.1) 11/28/18 06:42 Chloride 104 mmol/L (98-107) 11/28/18 06:42 Carbon Dioxide 27.8 mmol/L (21.0-32.0) 11/28/18 06:42 Anion Gap 8.2 mmol/L (3-11) 11/28/18 06:42 BUN 11 mg/dL (7-18) 11/28/18 06:42 Creatinine 0.76 mg/dL (0.70-1.30) 11/28/18 06:42 Estimated GFR/1.73 m2 >= 60.00 (mL/min/1.73m2) 11/28/18 06:42 Glucose 93 mg/dL (70-100) 11/28/18 06:42 Calcium 8.8 mg/dL (8.5-10.1) 11/28/18 06:42 Total Bilirubin 0.7 mg/dL (0.2-1.0) 11/28/18 06:42 AST 6 U/L (15-37) L 11/28/18 06:42 ALT 7 U/L (12-78) L 11/28/18 06:42 Alkaline Phosphatase 56 U/L (46-116) 11/28/18 06:42 C-Reactive Protein 5.30 mg/dL (0.0-0.3) H 11/27/18 23:59 Total Protein 7.0 g/dL (6.4-8.2) 11/28/18 06:42 Albumin 3.4 g/dL (3.4-5.0) 11/28/18 06:42 Vancomycin Trough 19.1 ug/mL (10.0-20.0) 11/29/18 07:35
--- NOTE | 2018-11-29 18:42 | NUR.NOTE ---
1812- called pt's guardian Bessy Mayo per her request as left in phone message, left message on voicemail. Also paged Dr. Skinner at guardians request. At time of this note, have not received call back from either. Nursing Note:
[2018-11-29] MEDS: VANCOMYCIN 1,250 MG in Normal Saline 250 ML 167 ML IVPB (20:28)
[2018-11-29] MEDS: MORPHine 2 MG/ML SYR IVP (20:35)
[2018-11-29] MEDS: traZODone 50 MG TAB PO (21:43)
[2018-11-29] MEDS: HYDROcodone 5/Acetaminophen 325 TAB PO (21:48)
[2018-11-30] MEDS: VANCOMYCIN 1,250 MG in Normal Saline 250 ML 167.007 ML IVPB (02:08)
[2018-11-30 03:03] VITALS: BP 110/74; PULSE 73; RESP 18; TEMP 36.5; O2SAT 99
[2018-11-30 07:25] VITALS: BP 118/75; PULSE 64; RESP 18; TEMP 36.3; O2SAT 97
[2018-11-30] MEDS: cloNIDine 0.1 MG TAB 0.2 MG PO (09:50)
[2018-11-30] MEDS: Divalproex 250 MG TABEC 500 MG PO (09:50)
[2018-11-30 10:00] VITALS: O2SAT 99
[2018-11-30 11:10] VITALS: BP 113/71; PULSE 76; RESP 17; TEMP 36.7; O2SAT 98
--- NOTE | 2018-11-30 12:43 | W.PM.DS.N ---
Date of service: 11/30/18 Time of Service: 12:43 Discharge Plan Disposition Patient Disposition: HOME Condition: Good Discharge Details Chief Complaint: Orthopedic Clinical Impression: Finger fracture, right, Post-operative infection Reason For Visit: CELLULITIS RIGHT INDEX FINGER STATUS POST PERCUTAN Admit Date/Time: 11/28/18 00:50 Admit Provider: Zeferino Cardoso Attending Provider: Cristi Skinner Primary Care Provider: Flaquito David ED Provider: Serenity Ramirez [facility] Course Hospital Course: This patient had undergone a closed reduction and percutaneous pinning of a fracture proximal phalanx of his right index finger on 11/02/2018. He was doing well until 11/27/2018, when he developed increasing pain swelling and erythema involving the dorsum of his right hand and his right index finger. He went to the emergency room and was diagnosed as having cellulitis. White count was not elevated but the patient had a C-reactive protein of 5.5 along with his physical findings. He was admitted to the hospitalist service at approximately 1 AM on 11/28/2018. He was admitted for IV antibiotic treatment. I was consulted the following day. I concur with the diagnosis. There is no evidence for osteomyelitis. He was already clinically improved after just 1 dose of vancomycin. On the following day 11/29/2018 he had further improvement with a lessening of the intensity of the area, decrease pain, and decreased swelling so the skin was not up against the pin balls. I decided to pull the pins at that time so the metal did not inhibit treatment of his cellulitis. On 11/30/2018, the erythema continued to fade. Pain was minimal. He was able to actively flex and extend his MP joint within a limited range without pain. He continued afebrile throughout his hospital course. I thought he could be discharged home on oral antibiotics. Home Meds and New Rx's Prescriptions: New amoxicillin-pot clavulanate [Augmentin] 875-125 mg tablet 1 tab PO BID Qty: 20 RF: 0 ibuprofen 800 mg tablet 800 mg PO TID Qty: 30 RF: 0 Continued divalproex 250 mg tablet,delayed release (DR/EC) 500 mg PO BID Qty: 120 RF: 5 clonidine HCl 0.1 MG tablet 2 tab PO HS Qty: 60 RF: 0 dextroamphetamine-amphetamine [Adderall XR] 20 MG capsule,extended release 24hr 2 cap PO DAILY Qty: 30 RF: 0 fluvoxamine 100 MG tablet 1 tab PO HS Qty: 30 RF: 0 trazodone 50 MG tablet 1 tab PO HS Qty: 90 RF: 0 clonidine HCl 0.1 MG tablet extended release 12 hr 2 tab PO .AM RF: 0 ibuprofen 200 MG tablet 400 mg PO Q8H PRNQty: 30 RF: 0 cholecalciferol (vitamin D3) [Vitamin D3] 1,000 unit Capsule 1,000 unit PO DAILY RF: 0 Discharge Instructions Additional Instructions: Continue to elevate R hand above heart level as much as possible for next 2-3 days. May use R hand to play video games. When you have too much pain, you have to stop. Apply icebag to back of R hand and index finger 4 times/day for [address] facecloth between icebag and skin. Move index finger as much as your discomfort allows. Take the antibiotic (Augmentin) every 12 hours as prescribed. Take your first dose at 8 PM tonite. Take ibuprofen 3 times/day to decrease swelling and inflammation. Wrap R hand with sandrine wrap to decrease swelling. May shower and get R hand wet. Follow up with in one week. Stand Alone Forms: Nursing Discharge Form Referrals: Cristi Skinner MD [ [facility] STAFF PHYSICIAN] - (f/u in one week.) Activity:: Activity as Tolerated Equipment/Supplies:: No Equipment Needed Diet:: As Tolerated Discharge Orders Discharge Orders: Discharge Order (Routine); Ordered 11/30/18 Ordered By: Cristi Skinner DS: Data Vitals/I&O Vitals and I&O: Vital Signs Temperature 36.3 C L 11/30/18 07:25 Temperature Source Tympanic 11/30/18 07:25 Pulse 64 11/30/18 07:25 Pulse Rhythm Regular 11/30/18 10:40 Respiratory Rate 18 11/30/18 07:25 Respiratory Effort 11/30/18 10:40 Respiratory Depth Normal 11/30/18 10:40 Respiratory Pattern Normal 11/30/18 10:40 Blood Pressure 118/75 11/30/18 07:25 Pulse Oximetry 99 11/30/18 10:00 Oxygen Delivery Method Room Air 11/30/18 10:00 Oxygen Flow Rate 0 11/30/18 10:00 Pain Level 10 11/30/18 07:25 Comment 11/30/18 03:03 Intake & Output 11/29/18 11/30/18 11/30/18 23:59 11:59 23:59 Intake Total 999.767 610 / 610 Balance 999.767 610 / 610 Weight 69.1 kg Intake: IV 520 / 1081.767 250 / 250 Oral 480 / 890 360 / 360 Labs on day of discharge: Labs from last 24 hours 11/30/18 07:10 Vancomycin Trough 23.0 H* [facility] Medical History ADHD (Chronic) Anxiety (Chronic) Autism (Chronic) Depression (Chronic) OCD (obsessive compulsive disorder) (Chronic) PTSD (post-traumatic stress disorder) (Chronic) History of fracture of finger (Resolved) History of wrist fracture (Resolved) Social History Smoking/Tobacco Use Status: Never Alcohol Intake: never Drug use: Never Substance use type: does not use Do you feel safe at home: Yes Do you feel safe in your relationship?: Yes
--- NOTE | 2018-11-30 13:40 | PDOC.CMDIS ---
- If Service Date Differs Date of service: 11/30/18 Time of Service: 13:40 LACE Index Scoring Tool - Questions: Length of Stay (in days): 2 Acuity (Admit via E.D.?): Yes E.D. 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 He will continue to take oral antibiotics and will follow up with Dr. Skinner in one week.Denis will be transported by Flaquito Leeble, his caregiver, via private vehicle. He will follow up with his PCP and discharge plan of care. Patient/Family Education Needs: Discharge plan, limitations, follow up plan and Ask Me Three.
--- NOTE | 2018-11-30 13:43 | CMDISCH_ITS ---
- If Service Date Differs Date of service: 11/30/18 Time of Service: 13:40 LACE Index Scoring Tool - Questions: Length of Stay (in days): 2 Acuity (Admit via E.D.?): Yes E.D. 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 He will continue to take oral antibiotics and will follow up with Dr. Skinner in one week.Denis will be transported by Flaquito Leeble, his caregiver, via private vehicle. He will follow up with his PCP and discharge plan of care. Patient/Family Education Needs: Discharge plan, limitations, follow up plan and Ask Me Three.
== END 2018-11-30 15:07 | disposition home or self-care (01) | DRG 863 ==
LOC: ER 11-28 01:08 → MS 11-28 09:52
PROVIDERS: Internal Medicine; Admitting Provider Family Medicine; Emergency Provider Physician Assistant; PCP Family Medicine; Visit Provider Orthopaedic Surgery
DX: T81.49XA Infection following a procedure, other surgical site, initial encounter (principal); L02.511 Cutaneous abscess of right hand; L03.011 Cellulitis of right finger; S62.610G Displaced fracture of proximal phalanx of right index finger, subsequent encounter for fracture with delayed healing; W23.0XXD Caught, crushed, jammed, or pinched between moving objects, subsequent encounter
CPT/HCPCS: 36415; 80053; 85027; 96365; 96366; 99222; 99231; 99252; 99285; NC; 73130; 80202; 85025; 86140; 99284; J1885; J2270; J3370

== ENCOUNTER 2018-12-06 12:57 | Outpatient (CLI) | payer MEDICAID, SELFPAY ==
--- NOTE | 2018-12-06 11:19 | DI.RAD_ITS ---
SYMPTOM/DIAGNOSIS: F/U RIGHT INDEX FINGER: Three views. Comparison is made with 11/02/18 and 11/27/18. The percutaneous pins have been removed. There has been no change in alignment of the healing fracture of the proximal phalanx of the right ring finger. The bones are osteopenic consistent with decreased use. No radiopaque foreign bodies are seen in the soft tissues.
== END 2018-12-06 13:17 ==
PROVIDERS: PCP Family Medicine; Visit Provider Orthopaedic Surgery
DX: S62.610D Displaced fracture of proximal phalanx of right index finger, subsequent encounter for fracture with routine healing (principal); M85.88 Other specified disorders of bone density and structure, other site
CPT/HCPCS: 73140

== ENCOUNTER 2019-02-09 10:14 | Emergency (ER) | payer MEDICAID, SELFPAY ==
[2019-02-09 10:17] VITALS: BP 126/80; PULSE 110; RESP 16; TEMP 36.8; O2SAT 98
--- NOTE | 2019-02-09 10:32 | DI.RAD_ITS ---
EXAM: XR HEEL RT OS CALCIS INDICATION: Heel pain after step on hammer. TECHNIQUE: 2D digital imaging was performed. FINDINGS: No bony, joint or soft tissue abnormality is identified.
--- NOTE | 2019-02-09 10:33 | ED.GENADUL_ITS ---
Discharge Plan Disposition Patient Disposition: HOME Condition: Improving Discharge Details Chief Complaint: Orthopedic Clinical Impression: Contusion of heel Primary Care Provider: Flaquito David ED Provider: Cristi Mack Home Meds and New Rx's Prescriptions: Continued divalproex 250 mg tablet,delayed release (DR/EC) 500 mg PO BID Qty: 120 RF: 5 clonidine HCl 0.1 MG tablet 2 tab PO HS Qty: 60 RF: 0 dextroamphetamine-amphetamine [Adderall XR] 20 MG capsule,extended release 24hr 2 cap PO DAILY Qty: 30 RF: 0 fluvoxamine 100 MG tablet 1 tab PO HS Qty: 30 RF: 0 trazodone 50 MG tablet 1 tab PO HS Qty: 90 RF: 0 clonidine HCl 0.1 MG tablet extended release 12 hr 2 tab PO .AM RF: 0 ibuprofen 200 MG tablet 400 mg PO Q8H PRNQty: 30 RF: 0 cholecalciferol (vitamin D3) [Vitamin D3] 1,000 unit Capsule 1,000 unit PO DAILY RF: 0 ibuprofen 800 mg tablet 800 mg PO TID Qty: 30 RF: 0 Discharge Instructions Instructions: Foot Contusion (ED) Additional Instructions: May use Tylenol if needed for pain. Apply ice to reduce discomfort Wear padded shoe. Return for any acute concern Medical Decision Making 23-year-old male stepped on a hammer yesterday with his foot and now with right heel pain. Exam is fairly reassuring, x-ray obtained without evidence of underlying bony injury. Discussed home management with the patient, he is stable to discharge at this time. HPI General Mode of arrival: ambulatory . Date/Time Provider Initiated Documentation: 02/09/19 10:23 . Limitations to Documentation: no limitations . Information obtained by: patient . History of Present Illness 23 year old M presents to the emergency department with the chief complaint of Right heel pain after stepping on hammer, described as moderate, Quality is described as dull, and is localized to the right and lower extremity. Patient reports no radiation. Patient started experiencing this hour(s) and it has been constant. No relieving factors improve symptom(s), Movement worsens symptoms . Patient notes no other symptoms.. Patient did receive the following treatments prior to arrival, none Related Data Home Medications Medication Instructions Recorded Confirmed clonidine HCl 2 tab PO HS #60 tab 08/26/12 02/09/19 dextroamphetamine-amphetamine 2 cap PO DAILY #30 cap 08/26/12 02/09/19 [Adderall XR] fluvoxamine 1 tab PO HS #30 tab 08/26/12 02/09/19 trazodone 1 tab PO HS #90 tab 08/26/12 02/09/19 clonidine HCl 2 tab PO .AM 09/08/13 02/09/19 ibuprofen 400 mg PO Q8H PRN #30 tab 09/03/17 02/09/19 divalproex 250 mg tablet,delayed 500 mg PO BID #120 tab NS 08/15/18 02/09/19 release cholecalciferol (vitamin D3) 1,000 unit PO DAILY 11/02/18 02/09/19 [Vitamin D3] ibuprofen 800 mg PO TID #30 tab 11/30/18 02/09/19 Previous Rx's Medication Instructions Recorded ibuprofen 400 mg PO Q8H PRN #30 tab 09/03/17 divalproex 250 mg tablet,delayed 500 mg PO BID #120 tab NS 08/15/18 release ibuprofen 800 mg PO TID #30 tab 11/30/18 Allergies Allergy/AdvReac Type Severity Reaction Status Date / Time amoxicillin Allergy Unknown Unverified 02/09/19 10:20 Cephalosporins Allergy Unknown Unverified 02/09/19 10:20 General Stated Complaint: Orthopedic RIDGE: 5 Review of Systems Review of Systems Narrative: 6 systems reviewed and otherwise negative [facility] Medical History ADHD (Chronic) Anxiety (Chronic) Autism (Chronic) Depression (Chronic) History of fracture of finger (Resolved) left index and middle History of wrist fracture (Resolved) Right OCD (obsessive compulsive disorder) (Chronic) PTSD (post-traumatic stress disorder) (Chronic) Social History Smoking/Tobacco Use Status: Never Alcohol Intake: never Drug use: Never Substance use type: does not use Do you feel safe at home: Yes Do you feel safe in your relationship?: Yes Exam Narrative Exam Narrative: GEN: awake, alert, oriented 3. Pleasant, well groomed, interactive. HEAD: Normocephalic, atraumatic ENT: Mucous membranes moist, oropharynx unremarkable, External ear exam unremarkable EYES: PERRL, EOMI EXT: Minimal pain with palpation right calcaneus. No puncture wound. 2+ dorsalis pedis present. Neuro: Grossly normal neurologic exam, conversant, interactive. Psych: Speech fluent, thoughts congruent, affect normal Course Vital Signs Vital signs: Vital Signs Temperature 36.8 C 02/09/19 10:17 Pulse 110 H 02/09/19 10:17 Respiratory Rate 16 02/09/19 10:17 Blood Pressure 126/80 02/09/19 10:17 Pulse Oximetry 98 02/09/19 10:17 Temperature 36.8 C 02/09/19 10:17 Temperature Source Skin 02/09/19 10:17 Pulse 110 H 02/09/19 10:17 Respiratory Rate 16 02/09/19 10:17 Respiratory Effort Non-Labored 02/09/19 10:20 Blood Pressure 126/80 02/09/19 10:17 Blood Pressure Position Sitting 02/09/19 10:17 Pulse Oximetry 98 02/09/19 10:17 Oxygen Delivery Method Room Air 02/09/19 10:17 Oxygen Flow Rate 0 02/09/19 10:17
[2019-02-09 11:09] VITALS: BP 126/80; PULSE 110; RESP 16; TEMP 36.8; O2SAT 98
== END 2019-02-09 10:55 | disposition home or self-care (01) ==
PROVIDERS: Emergency Provider Emergency Medicine; PCP Family Medicine
DX: S90.31XA Contusion of right foot, initial encounter (principal); X50.9XXA Other and unspecified overexertion or strenuous movements or postures, initial encounter
CPT/HCPCS: 99283; 73650

== ENCOUNTER 2019-10-10 12:32 | Outpatient (REF) | payer MEDICAID, SELFPAY ==
[2019-10-10 14:41] LABS: HCT 45.4 % (40.0-50.0); Mean Corp. HGB Concentration 35.2 g/dL (32.0-36.0); Mean Corpuscular Hemoglobin 30.9 pg (27.0-33.0); Mean Corpuscular Volume 87.6 fL (80-95); Mean Platelet Volume 12.4 fL (8.0-11.0); Platelet Count 195 x1000/uL (130-400); RBC 5.18 m/cumm (4.50-6.00); RBC Distribution Width 13.3 % (11.8-14.1); White Blood Cell Count 4.38 k/cumm (4.4-10.8)
[2019-10-10 14:46] LABS: VALPROIC ACID 108.6 ug/mL (50-100)
[2019-10-10 14:48] LABS: ALT 34 U/L (16-63); AST 20 U/L (15-37); Albumin 3.9 g/dL (3.4-5.0); Alkaline Phosphatase 85 U/L (46-116); Anion Gap 8.2 mmol/L (3-11); BUN 15 mg/dL (7-18); Bilirubin, Total 0.4 mg/dL (0.2-1.0); CO2 27.8 mmol/L (21.0-32.0); CREATININE 0.89 mg/dL (0.70-1.30); Calcium 9.4 mg/dL (8.5-10.1); Chloride 102 mmol/L (98-107); Glucose 104 mg/dL (74-106); Potassium 4.2 mmol/L (3.5-5.1); Sodium 138 mmol/L (136-145); Total Protein 7.5 g/dL (6.4-8.2)
== END 2019-10-10 12:52 ==
LOC: NCHCN 12:32
PROVIDERS: PCP Family Medicine; Visit Provider Family Medicine
DX: R56.9 Unspecified convulsions (principal); Z51.81 Encounter for therapeutic drug level monitoring; D69.6 Thrombocytopenia, unspecified
CPT/HCPCS: 80053; 85027; 80164

== ENCOUNTER 2020-01-15 17:58 | Emergency (ER) | payer MEDICAID, SELFPAY ==
[2020-01-15 18:03] VITALS: BP 153/85; PULSE 65; TEMP 36; O2SAT 97
--- NOTE | 2020-01-15 18:45 | DI.CT_ITS ---
EXAM: CT ABDOMEN PELVIS W CLINICAL HISTORY: RUQ pain TECHNIQUE: COMPARISON: No exams were available for comparison FINDINGS: CT examination of the abdomen and pelvis was performed with bolus infusion of 100 cc of Omnipaque 350 . Images obtained through the lung bases are unremarkable. The liver and spleen appear normal as does the pancreas. Gallbladder and bile ducts are unremarkable. Adrenals appear normal bilaterally. Kidneys appear normal with no evidence of renal mass, hydronephro sis, or nephrolithiasis There is no evidence of abdominal or pelvic adenopathy. Abdominal aorta is of normal diameter and no major vascular abnormality is seen. Appendix is normal. No evidence diverticulitis or bowel obstruction. No significant abdominal wall hernia seen. Impression: Negative examination of the abdomen and pelvis. RADIATION DOSE DELIVERED: 1,048.62mGy.cm Total DLP 1,048.62mGy.cm Total DLP DATA REPOSITORY: All CT scans at this facility are submitted to the National Radiology Data Registry (NRDR) Dose Index Registry (DIR) with the [employer] (A[employer]). RADIATION OPTIMIZATION: All CT scans at this facility use at least one of these dose optimization te chniques: automated exposure control; mA and/or kV adjustment per patient size (includes targeted exa ms where dose is matched to clinical indication); or iterative reconstruction.
--- NOTE | 2020-01-15 18:45 | W.ED.GENAD ---
Discharge Plan Disposition Patient Disposition: HOME Condition: Good Discharge Details Chief Complaint: Abd Prob Clinical Impression: Gallstones, Abdominal pain Primary Care Provider: Flaquito David ED Provider: Serenity Ramirez Home Meds and New Rx's Prescriptions: New ondansetron 4 mg tablet,disintegrating 4 mg PO Q6H PRN (Reason: nausea and vomiting) Qty: 10 RF: 0 Continued divalproex 250 mg tablet,delayed release (DR/EC) 500 mg PO BID Qty: 360 RF: 3 clonidine HCl 0.1 MG tablet 2 tab PO HS Qty: 60 RF: 0 fluvoxamine 100 MG tablet 1 tab PO HS Qty: 30 RF: 0 trazodone 50 MG tablet 1 tab PO HS Qty: 90 RF: 0 clonidine HCl 0.1 MG tablet extended release 12 hr 2 tab PO .AM RF: 0 ibuprofen 200 MG tablet 400 mg PO Q8H PRNQty: 30 RF: 0 cholecalciferol (vitamin D3) [Vitamin D3] 1,000 unit Capsule 1,000 unit PO DAILY RF: 0 Discharge Instructions Instructions: Biliary Colic (ED) Additional Instructions: Encourage water intake. Please try to avoid fatty foods this will likely cause increased discomfort once again. You may use the Zofran as prescribed to help with any return of the nausea or vomiting. I would like for you to follow-up with general surgery after outpatient ultrasound. Ultrasound has been ordered. Please call general surgery office tomorrow morning, number listed below, to schedule follow-up appointment. If you develop persistent pain, fevers,Vomiting, inability to stay hydrated or other new/worsening symptom please seek care urgently once again Referrals: Kaitlin Alcocer MD [ [facility] STAFF PHYSICIAN] - Flaquito David [Primary Care Provider] - Discharge Data Discharge Date/Time-TO BE ENTERED AT DEPARTURE: 01/16/20 00:15 Medical Decision Making Patient is a 24-year-old gentleman presenting today with chief complaint of right upper quadrant pain. He reports that this began approximately 1 hour prior to arrival. Reports that he vomited x6 prior to arrival. States that this came on after eating kielbasa. Denies having had this prior to today. He reports that initially when the pain began he was concerned he may been associated with hunger and ate more. Reports that a potato strips which seem to further exacerbate his discomfort. He is now endorsing fairly severe pain in the right upper quadrant. No previous abdominal surgeries. No recent fevers or chills. Denies hematemesis. No change in bowel or bladder habits. On exam, patient appears to be nontoxic. He is tender in the right upper quadrant with a positive Barnes sign. FINDINGS: Liver: Normal. No mass. Gallbladder and bile ducts: Distended appearing gallbladder without radiopaque stones. No wall thickening. No pericholecystic fluid. No intra or extrahepatic biliary ductal dilatation. Pancreas: Normal. No ductal dilation. Spleen: Normal. No splenomegaly. Adrenals: Normal. No mass. Kidneys and ureters: Normal. No hydronephrosis. Stomach and bowel: Unremarkable. No obstruction. No mucosal thickening. Appendix: No evidence of appendicitis. Intraperitoneal space: Unremarkable. No free air. No significant fluid collection. Vasculature: Unremarkable. No abdominal aortic aneurysm. Lymph nodes: Unremarkable. No enlarged lymph nodes. Bladder: Unremarkable as visualized. Reproductive: Unremarkable as visualized. Bones/joints: Unremarkable. No acute fracture. Soft tissues: Unremarkable. IMPRESSION: Distended appearing gallbladder without radiopaque stones. Cholecystitis is not excluded. Labs reviewed. No leukocytosis. Stable H&H. Normal liver enzymes. CMP without significant abnormality. Lipase within normal limits. Consult with Dr. Alcocer with general surgery who reviewed the images. She does not feel the patient has acute cholecystitis. However, biliary colic cannot be ruled out she did advise outpatient ultrasound. Will advise avoidance of fatty foods. Patient will follow-up with general surgery. Discussed these recommendations and findings with the patient. His pain is much improved. Plan for outpatient ultrasound and follow-up with orthopedics. Encourage water intake. We discussed dietary changes that may help with discomfort. He was given return precautions. All his questions and concerns were addressed and he is in agreement this plan. HPI General Mode of arrival: ambulatory. Date/Time Provider Initiated Documentation: 01/15/20 18:13. Limitations to Documentation: no limitations. Information obtained by: patient and RN notes reviewed. History of Present Illness 24 year old M presents to the emergency department with the chief complaint of RUQ abdominal pain, described as severe, with intensity rated at 10. Quality is described as sharp, and is localized to the abdomen. Patient reports no radiation. Patient started experiencing this hour(s) (1) and it has been constant. No relieving factors improve symptom(s), Eating worsens symptoms (has eaten x 2, each time symptoms worsened) . Patient notes loss of appetite and nausea/vomiting; denies chest pain, cough, diaphoresis, fever/chills and shortness of breath. Patient did receive the following treatments prior to arrival, none Related Data Home Medications Medication Instructions Recorded Confirmed clonidine HCl 2 tab PO HS #60 tab 08/26/12 01/17/20 fluvoxamine 1 tab PO HS #30 tab 08/26/12 01/17/20 trazodone 1 tab PO HS #90 tab 08/26/12 01/17/20 clonidine HCl 2 tab PO .AM 09/08/13 01/17/20 ibuprofen 400 mg PO Q8H PRN #30 tab 09/03/17 01/17/20 cholecalciferol (vitamin D3) 1,000 unit PO DAILY 11/02/18 01/17/20 [Vitamin D3] divalproex 250 mg tablet,delayed 500 mg PO BID #360 tab NS 09/20/19 01/17/20 release ondansetron 4 mg PO Q6H PRN #10 tab 01/15/20 01/17/20 Previous Rx's Medication Instructions Recorded ibuprofen 400 mg PO Q8H PRN #30 tab 09/03/17 divalproex 250 mg tablet,delayed 500 mg PO BID #360 tab NS 09/20/19 release ondansetron 4 mg PO Q6H PRN #10 tab 01/15/20 Allergies Allergy/AdvReac Type Severity Reaction Status Date / Time amoxicillin Allergy Unknown Unverified 01/17/20 09:54 Cephalosporins Allergy Unknown Unverified 01/17/20 09:54 General Stated Complaint: Abd Prob RIDGE: 3 Review of Systems Constitutional Constitutional: Reports as per HPI, Denies chills, Denies fatigue, Denies fever(s) and Denies headache(s) ENT Ears, Nose, Mouth, and Throat: Denies headache(s) Cardiovascular Cardiovascular: Reports as per HPI, Denies chest pain and Denies dyspnea Respiratory Respiratory: Reports as per HPI, Denies cough and Denies dyspnea Gastrointestinal Gastrointestinal: Reports as per HPI Genitourinary Genitourinary: Denies system reviewed and no additional complaints, except as documented (patient denies any change in urinary habits) Musculoskeletal Musculoskeletal: Reports as per HPI and Denies back pain Integumentary/Breasts Skin/Breast: Reports as per HPI and Denies rash Neurologic Neurologic: Reports as per HPI and Denies headache(s) Endocrine Endocrine: Denies fatigue [facility] Medical History (Updated 01/17/20 @ 10:26 by Isabelle Estrada DO) Abnormal CT scan, gallbladder (Acute) ADHD (Chronic) Anxiety (Chronic) Autism (Chronic) Biliary dyskinesia (Acute) Cognitive developmental delay (Acute) Depression (Chronic) History of fracture of finger (Resolved) left index and middle History of wrist fracture (Resolved) Right OCD (obsessive compulsive disorder) (Chronic) PTSD (post-traumatic stress disorder) (Chronic) Seizures (Chronic) Surgical History S/P ORIF (open reduction internal fixation) fracture (Acute) R finger, 2019 Social History Smoking/Tobacco Use Status: Never Alcohol Intake: never Drug use: Never Substance use type: does not use Caregiver/Support person: Yes Household members: caregiver Number of Children: 0 current occupation: Disabled Current gender identity: male Do you feel safe at home: Yes Do you feel safe in your relationship?: Yes Additional Social history: 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 Mother's name is Cesia. He currently lives with home care provider Flaquito Virk ( as of 2018). Mr. Gomez graduated from a special needs high school at age 18. His hobbies include escalator mechanic work, cars, etc. Exam Const General: cooperative, healthy appearing, uncomfortable, no acute distress and well developed Nutritional Appearance: average body habitus and well nourished Orientation: alert and awake HENMT Head: normal to inspection Mouth: moist mucous membranes Resp Effort & Inspection: normal respiratory effort, able to speak in complete sentences and no respiratory distress Auscultation: clear to auscultation bilaterally, no rales, no rhonchi and no wheezes Cardio Rate: regular rate Rhythm: regular rhythm Heart Sounds: S1 normal and S2 normal GI Inspection: normal to inspection and non-distended Palpation: soft, no hepatosplenomegaly, not firm, guarding (with Barnes's) in the RUQ, no hepatosplenomegaly, no masses, no pulsatile masses, not rigid and tender in the RUQ and Barnes's sign positive; not at McBurney's point and with no rebound tenderness Percussion: normal to percussion Auscultation: normal bowel sounds Back/Spine/Pelvis Back: no CVA tenderness Skin General skin exam: no rashes or lesions noted Trauma: no lacerations or abrasions Neuro General: patient alert and patient awake Cognition: normal cognition Speech: speech normal Gait: normal gait Psych Appearance: grossly normal and well kempt Mental Status: mental status grossly normal Speech and Movement: speech and movement normal Course Vital Signs Vital signs: Vital Signs Temperature 36.0 C L 01/15/20 18:03 Pulse 65 01/15/20 18:03 Blood Pressure 153/85 H 01/15/20 18:03 Pulse Oximetry 97 01/15/20 18:03 Temperature 36.0 C L 01/15/20 18:03 Pulse 65 01/15/20 18:03 Blood Pressure 153/85 H 01/15/20 18:03 Pulse Oximetry 97 01/15/20 18:03 Pain Level 10 01/15/20 18:03
[2020-01-15] MEDS: Lactated Ringers 1,000 ML 1000 ML IV (19:00)
[2020-01-15] MEDS: Omnipaque 350 MG/ML 100 ML BTL IJ (19:06)
[2020-01-15] MEDS: Normal Saline - Diluent 50 ML VIAL IV (19:07)
[2020-01-15] MEDS: Normal Saline Flush 10 ML SYR IVP (19:07)
[2020-01-15] MEDS: Ondansetron 4 MG/2 ML VIAL IVP (19:10)
[2020-01-15 19:29] LABS: Abs Immature Grans 0.07 10^3/uL (0.0-0.06); Absolute Basophil Count 0.03 10^3/uL (0.0-0.2); Absolute Eosinophil Count 0.03 10^3/uL (0.0-0.7); Absolute Lymphocyte Count 1.71 10^3/uL (1.2-3.4); Absolute Monocyte Count 0.85 10^3/uL (0.1-0.8); Absolute Neutrophil Count 6.25 10^3/uL (1.2-6.7); Basophils % 0.3; Eosinophils % 0.3; HCT 45.7 % (40.0-50.0); Immature Grans % 0.8; Lymphocytes % 19.1; MCH 30.5 pg (27.0-33.0); MCV 87.2 fL (80-95); MPV 12.7 fL (8.0-11.0); Monocytes % 9.5; Nucleated RBC 0 %; Platelet Count 134 10^3/uL (130-400); RBC 5.24 10^6/uL (4.36-5.78); RDW-SD 40.5 fL; WBC 8.94 10^3/uL (4.4-10.8)
--- NOTE | 2020-01-15 19:32 | DI.VRAD_ITS ---
PROCEDURE INFORMATION: Exam: CT Abdomen And Pelvis With Contrast Exam date and time: 01/15/2020 6:48 PM Age: 24 years old Clinical indication: Abdominal pain; Localized; Right upper quadrant (ruq); Patient HX: Ruq pain TECHNIQUE: Imaging protocol: Computed tomography of the abdomen and pelvis with intravenous contrast. COMPARISON: No relevant prior studies available. FINDINGS: Liver: Normal. No mass. Gallbladder and bile ducts: Distended appearing gallbladder without radiopaque stones. No wall thickening. No pericholecystic fluid. No intra or extrahepatic biliary ductal dilatation. Pancreas: Normal. No ductal dilation. Spleen: Normal. No splenomegaly. Adrenals: Normal. No mass. Kidneys and ureters: Normal. No hydronephrosis. Stomach and bowel: Unremarkable. No obstruction. No mucosal thickening. Appendix: No evidence of appendicitis. Intraperitoneal space: Unremarkable. No free air. No significant fluid collection. Vasculature: Unremarkable. No abdominal aortic aneurysm. Lymph nodes: Unremarkable. No enlarged lymph nodes. Bladder: Unremarkable as visualized. Reproductive: Unremarkable as visualized. Bones/joints: Unremarkable. No acute fracture. Soft tissues: Unremarkable. IMPRESSION: Distended appearing gallbladder without radiopaque stones. Cholecystitis is not excluded. Dictated and Authenticated by: Vinita Veliz MD. Ordering:MÓNICA Benton MD
[2020-01-15 19:41] LABS: ALT 37 U/L (16-63); AST 33 U/L (15-37); Albumin 3.8 g/dL (3.4-5.0); Alkaline Phosphatase 80 U/L (46-116); Anion Gap 9.5 mmol/L (3-11); BUN 16 mg/dL (7-18); Bilirubin, Total 0.5 mg/dL (0.2-1.0); CO2 29.5 mmol/L (21.0-32.0); Calcium 9.2 mg/dL (8.5-10.1); Chloride 101 mmol/L (98-107); Glucose 121 mg/dL (74-106); Lipase 185 U/L (73-393); Potassium 4.4 mmol/L (3.5-5.1); Sodium 140 mmol/L (136-145); Total Protein 7.8 g/dL (6.4-8.2)
[2020-01-15] MEDS: Ondansetron O.D.T. 4 MG TABEF, 3 TABS/BTL PO (20:10)
--- NOTE | 2020-01-15 20:48 | NUR.NOTE ---
REFERRAL FAXED TO GENERAL SURGERY FOR FOLLOW UP CARE REGARDING ED VISIT. Nursing Note:
== END 2020-01-16 00:15 | disposition home or self-care (01) ==
LOC: ER 20:34
PROVIDERS: Emergency Provider Physician Assistant; PCP Family Medicine
DX: K80.20 Calculus of gallbladder without cholecystitis without obstruction (principal); R10.11 Right upper quadrant pain; R11.0 Nausea
CPT/HCPCS: 36415; 80053; 83690; 96361; 96374; 99285; 74177; 85025; J2405; J3490

== ENCOUNTER 2020-01-17 07:59 | Outpatient (CLI) | payer MEDICAID, SELFPAY ==
--- NOTE | 2020-01-16 | DI.US_ITS ---
EXAM: US ABDOMEN LIMITED INDICATION: ABD PAIN COMPARISON: CT CT ABDOMEN PELVIS W from 01/15/2020 TECHNIQUE: Ultrasound abdomen performed using standard protocol FINDINGS: Abdominal ultrasound was performed according to the usual protocol. The liver is normal in size and shape. No focal hepatic lesion seen. There is no evidence of cholelithiasis or biliary dilatation. No gallbladder wall thickening or peric holecystic fluid collection. Pancreas appears intact as visualized. Spleen is unremarkable in appearance with no focal lesion. Kidneys are normal in size and shape. No renal mass, hydronephrosis, or nephrolithiasis. Abdominal aorta and IVC are of normal diameter. IMPRESSION: Negative abdominal ultrasound.
== END 2020-01-17 08:19 ==
PROVIDERS: PCP Family Medicine; Visit Provider Physician Assistant
DX: R10.9 Unspecified abdominal pain (principal)
CPT/HCPCS: 76705

== ENCOUNTER 2020-01-24 01:42 | Outpatient (CLI) | payer MEDICAID, SELFPAY ==
--- NOTE | 2020-01-24 07:00 | DI.NM_ITS ---
EXAM: NM HEPATOBILIARY CCK GRP CLINICAL HISTORY: ruq pain and vomting abnormal CT, biliary dyskinesia. TECHNIQUE: Injected dose: 4.8 mCi Tc-99 mebrofenin Initial dynamic images: 60 minutes Post-Gallbladder fillin.4 mcg CCK intravenously infused. Addition images: 20 minute dynamic during CCK administration. COMPARISON: No exams were available for comparison FINDINGS: Normal hepatic transit time. Prompt excretion into the small bowel. The gallbladder fills after 70 minutes. The gallbladder ejection fraction is 18 percent. (Normal ga llbladder ejection fraction is greater than 40 percent). IMPRESSION: 1. Gallbladder ejection fraction. [facility] guidelines: Gallbladder visualization should be present by 3 hours. Delayed hbwjria-oa-swrwd santana sit beyond 60 min raises the suspicion for partial common bile duct (CBD) obstruction. Gallbladder ejection fraction <35% has a good correlation with acalculous disease (i.e., chronic acal culous cholecystitis, cystic duct syndrome, sphincter of Oddi disease).
[2020-01-24] MEDS: Sincalide 5 MCG VIAL 1.4 MCG IJ (11:08)
== END 2020-01-24 02:02 ==
PROVIDERS: PCP Family Medicine; Visit Provider Surgery
DX: K82.8 Other specified diseases of gallbladder (principal); R10.11 Right upper quadrant pain
CPT/HCPCS: 78227

== ENCOUNTER 2020-02-09 07:38 | Outpatient (CLI) | payer MEDICAID, SELFPAY ==
[2020-02-10 20:00] LABS: COVID-19 RT-PCR Result NEGATIVE (Negative)
== END 2020-02-09 07:58 ==
PROVIDERS: PCP Family Medicine; Visit Provider Surgery
DX: Z01.818 Encounter for other preprocedural examination (principal)
CPT/HCPCS: U0003

== ENCOUNTER 2020-02-12 09:24 | Inpatient (IN) | payer MEDICAID, SELFPAY ==
[2020-02-12] VITALS (45 sets, daily range): BP systolic 131–159; BP diastolic 61–94; PULSE 58–81; RESP 16–27; TEMP 36–36.6; O2SAT 94–100
[2020-02-12] MEDS: Acetaminophen 500 MG TAB 1000 MG PO ×2 (09:58→19:49)
[2020-02-12] MEDS: Gabapentin 300 MG CAP PO (09:58)
[2020-02-12] MEDS: Lactated Ringers 1,000 ML 80 ML IV (10:08)
[2020-02-12] MEDS: CLINDAMYCIN 600 MG/50 ML BAG 100 MG IVPB (11:59)
--- NOTE | 2020-02-12 13:00 | GB_PTH ---
PATIENT: Denis Santos LOC: ICU U#:[id number] AGE/SX: 24/M ROOM: ICU.219 RE02/12/[address]: Isabelle Estrada : 1995 BED: A DIS: 02/13/2020 SPEC #: [id number] RECD: 02/12/20 17:32 STATUS: LISSETTE REQ #: [id number] CLAIR: 02/12/20 13:[address]: Isabelle Estrada DEPT: Surgical Specimen RECD BY: Marion Flowers ENTERED: 02/12/20 17:33 SP TYPE: GB OTHR DR: Flaquito David Tissues: 1 - GALLBLADDER Procedures: GROSS AND MICRO LEVEL 3 Comments: [id number]
[2020-02-12] MEDS: Cellulose,Oxidized 4X8 1 PACKET MC (13:10)
--- NOTE | 2020-02-12 13:33 | ROE_ITS ---
Date of service: 02/12/20 Time of Service: 13:33 Operative Note Operative Note DATE OF PROCEDURE: 02/12/20 PRE-OP DIAGNOSIS: biliary dyskinesia POST-OP DIAGNOSIS: same PROCEDURE: lap erinn SURGEON: Isabelle Galarza SENIOR CONTROLS ANALYST: Kera Bush ANESTHESIA: GETA and local ESTIMATED BLOOD LOSS: 5 PATHOLOGY: other COMPLICATIONS: None Patient was transported to: PACU Procedure Description: INDICATIONS: The pt is seen at the request of there PCP regarding acute on chronic cholecystitis/biliary dyskinesia. The pt has failed outpt conservative medical measures and is here today for laparoscopic cholecystectomy. Informed consent was obtained, explaining risks and benefits of the procedure including but not limited to bleeding, infection, pneumonia, blood clots, possible damage to bowel, bladder, blood vessels, bile ducts, possible open procedure, complications of general anesthesia and other unforetold complications. PROCEDURE: The patient agrees and is brought to the operative room suite and placed in supine position. Anesthesia was administered per the Department of Anesthesia. The patient did receive IV antibiotics. NG tube and Farrell catheter are placed. The patient was prepped and draped in the usual sterile fashion using DuraPrep scrub solution. Pause for the cause was done. 20 mL of 1% buffered lidocaine was used for local anesthetization. A stab incision was made in the umbilicus and the Verres inserted. Drop test was positive and insufflation was begun. When 15 mm of pressure was noted on the monitor, the Veress was removed and #5 port inserted. The camera was inserted through the port and shows no damage to underlying structures. A 10 mm port was then placed in the epigastric position under direct visualization following creation of local field blocks as well as two 5 mm ports in the right upper quadrant. The gallbladder fundus was grasped and retracted towards the right shoulder. Infundibulum was grasped and retracted laterally. The hepat-duodenal ligament is entered. The cystic duct and artery are dissected out and the most inferior portion of the gallbladder plate is removed from the liver and the critical view of safety was obtained after clearing away all fatty material. Endo Clips were placed across the duct and artery and these structures are divided. The remainder of the gallbladder was excised from the liver bed. The gallbladder was placed in a bag and brought out. Examination of the gallbladder shows indeed the cystic duct and artery to have been divided. The remainder of the abdomen was copiously irrigated with a liter of saline. All saline is removed. THere is a slt amount of bleeding on the inferior portion of the liver bed, and flow seal was placed. There is no bleeding or bile leakage from the liver bed or the clips sites at the time of closure. An EndoClose needle was used to close the 10 mm port site with an 0 Vicryl. All ports and instruments are removed. SPonge and needle counts are correct. Pneumoperitoneum is evacuated and the port sites are monitored to make sure there is no bleeding at the time of desufflation. Port sites are irrigated and the skin is closed with 4-0 Monocryl in a running subcuticular fashion. Skin glue sterile dressings are applied. The patient tolerated the procedure well without complications, transferred to the recovery room in stable condition. ISABELLE GALARZA DO
--- NOTE | 2020-02-12 13:55 | W.PM.PROGNOT ---
Date of Service Date of service: 02/12/20 Time of Service: 16:30 Assessment and Plan Assessment and plan (1) Seizures: Status: Chronic (2) Biliary dyskinesia: Status: Acute Assessment and plan: The patient is doing well post-op. There pain is well controlled. He c/o R shoulder pain. He is having no nausea or vomiting. The pt is not having any chest pain or SOB, productive cough; no calf pain or swelling. The pt is making good urine. The pt pain is adequately controlled. The case was discussed with nursing and patients progress reviewed. All of the pt's home medications were addressed and adjusted accordingly. Pt has been tolerating clears and wants to eat. I would like to see him up walking tonight. HEENT: no jaundice. no eye pain/drainage/redness/swelling. mild sore throat cardio- NSR no chest pain, BP stable. pulm: no sob or productive cough. no hemoptysis incision- clean/dry. dressing intact no excessive bleeding or drainage I discussed with the patient and/or there family about the findings in surgery and the pt's progress. We reviewed expectations for progress in the hospital; what the pt could expect for recovery time and length of stay. We discussed the importance of walking and pulmonary toilet to avoid blood clots and pneumonia. Continue current plans for pulmonary toilet, GI and DVT prophalxis. We shall continue the current plan for pain management as it is at an appropriate level and working well for the pt. Appropriate measures will be taken for constipation prevention as well, and this was also reviewed with the pt. wound care plan was reviewed with nursing as well. We will keep pt in ICU overnight b/c of his Hx of postOp seizures. Plan d/c home in am. see orders Objective Last Vital Signs Temp 36.5 C 02/12/20 09:44 Pulse 71 02/12/20 09:44 Resp 16 02/12/20 09:44 BP 133/78 02/12/20 09:44 Pulse Ox 98 02/12/20 09:44
[2020-02-12] MEDS: Ketorolac 30 MG/ML VIAL IVP ×2 (15:15→21:11)
[2020-02-12] MEDS: Normal Saline Flush 10 ML SYR IV (15:16)
--- NOTE | 2020-02-12 16:02 | DSE_ITS ---
Documented by User: Isabelle Estrada DO 02/14/20 21:40 Date of service: 02/13/20 Time of Service: 08:00 DS: Diagnosis Discharge Diagnosis (1) Seizures: Status: Chronic (2) Biliary dyskinesia: Status: Acute Discharge Plan Disposition Patient Disposition: HOME Condition: Improving Discharge Details Reason For Visit: BILIARY DYSKINESIA/SEIZURE D/O Admit Date/Time: 02/12/20 09:24 Admit Provider: Isabelle Estrada Attending Provider: Isabelle Estrada [facility]: 24 y/o male was admitted following laparoscopic cholecystecomy due to biliary dyskinesia for concern for a history of increases seizure activity following surgical procedures. Patient did well over night, eating a regular diet without nausea or vomting. Abdominal pain was well controlled. No seizure activity was observed. Home Meds and New Rx's Prescriptions: New ibuprofen 600 mg tablet 600 mg PO Q6H PRNQty: 60 RF: 4 Continued divalproex 250 mg tablet,delayed release (DR/EC) 500 mg PO BID Qty: 360 RF: 3 clonidine HCl 0.1 MG tablet 2 tab PO HS Qty: 60 RF: 0 fluvoxamine 100 MG tablet 1 tab PO HS Qty: 30 RF: 0 trazodone 50 MG tablet 1 tab PO HS Qty: 90 RF: 0 clonidine HCl 0.1 MG tablet extended release 12 hr 2 tab PO .AM RF: 0 ibuprofen 200 MG tablet 400 mg PO Q8H PRNQty: 30 RF: 0 cholecalciferol (vitamin D3) [Vitamin D3] 1,000 unit Capsule 1,000 unit PO DAILY RF: 0 ondansetron 4 mg tablet,disintegrating 4 mg PO Q6H PRN (Reason: nausea and vomiting) Qty: 10 RF: 0 Discharge Instructions Additional Instructions: Care after Gallbladder Surgery -You should walk frequently, gradually, increasing the distance. You may climb stairs, just go slowly. -You can take Advil 600mg 4 times a day with food for the first week for pain; you may take your prescription medication as prescribed-in addition to the Advil. Discontinue Advil if it hurts your stomach. Do not take Advil if you are intolerant to aspirin products or have stomach problems. ? Use an ice bag for the first 72 hours. This helps to decrease swelling, which causes pain. It is normal to be more sore/painful and swollen towards the end of the day and first thing in the morning. ? Use milk of magnesia or prune juice to prevent constipation (this is a particular side effect of pain medication). Do not allow yourself to become constipated. ? Avoid fatty or greasy foods; introduce these slowly, with care, after about 1 month. Follow the low-fat diet sheet that will be given to you at the office or hospital. ? Start out eating very small, bland amounts of food. Do not take pain pills on an empty stomach. - You can take a shower 24 hrs after surgery ? Do not go swimming or sit in a hot tub for two weeks. ? There are no stitches to remove. ? Do not drive your car x72hrs and then only if you have no pain and can move freely. Do not drive if you are taking pain narcotic pain medications. ? You may resume sexual activity whenever pain and soreness subside, usually in 2 weeks. ? Do no lift anything over 5 lbs. for the first 10 days. Minimize strenuous activity for the next two weeks. ? You may return to work in one week, or when you feel able, provided you do not have to do any heavy lifting or prolonged standing. ? You should return to Dr. Estrada?s office for a post-op appointment about one week after surgery. Please call the Surgical Clinic at: [phone] to schedule an appointment. My Medications for pain are: ibuprofen and ultram When to Call the Office: ? If the incision becomes red or swollen, or there is more than a little drainage from it. ? If you develop a temperature higher than 100.5 F. ? If your eyes turn yellow ? Vomiting and can?t keep fluids down Activity:: see above Equipment/Supplies:: No Equipment Needed Diet:: see above Discharge Orders Discharge Orders: Discharge Order (Routine); Ordered 02/13/20 Ordered By: Kera Bush Discharge Data Discharge Date/Time-TO BE ENTERED AT DEPARTURE: 02/13/20 11:09 DS: Data Vitals/I&O Vitals and I&O: Vital Signs Temperature 36 C L 02/12/20 15:20 Temperature Source Temporal Artery Scan 02/12/20 15:20 Pulse 68 02/12/20 15:20 Pulse Rhythm Regular 02/12/20 09:44 Respiratory Rate 24 02/12/20 14:40 Respiratory Effort 02/12/20 15:20 Respiratory Depth Normal 02/12/20 15:20 Respiratory Pattern Normal 02/12/20 15:20 Blood Pressure 131/66 02/12/20 14:40 Pulse Oximetry 98 02/12/20 14:40 Respiratory End-tidal CO2 41 02/12/20 14:40 Oxygen Delivery Method Room Air 02/12/20 15:20 Oxygen Flow Rate 0 02/12/20 15:20 Pain Level 6 02/12/20 15:48 Intake & Output 02/11/20 02/12/20 02/12/20 23:59 11:59 23:59 Intake Total 850 / 850 Output Total 50 / 50 Balance 800 / 800 Weight 96.4 kg Intake: IV 850 / 850 Output: Urine 50 / 50 Other: Urine Color Pale Yellow Urine Appearance Clear Emesis Description None PFSH Medical History Abnormal CT scan, gallbladder ADHD Anxiety Autism Biliary dyskinesia Cognitive developmental delay Depression History of fracture of finger left index and middle History of wrist fracture Right OCD (obsessive compulsive disorder) PTSD (post-traumatic stress disorder) Seizures Per home care provider, states he has not had a seizure in 3 years Surgical History S/P ORIF (open reduction internal fixation) fracture R finger, 2019 Social History Smoking/Tobacco Use Status: Never Alcohol Intake: never Drug use: Never Substance use type: does not use Caregiver/Support person: Yes Household members: caregiver Number of Children: 0 current occupation: Disabled Current gender identity: male Do you feel safe at home: Yes Additional Social history: 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 Mother's name is Cesia. He currently lives with home care provider Flaquito Virk ( as of 2018). Mr. Gomez graduated from a special needs high school at age 18. 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 Documented by User: [email or web address] Kovacs 02/13/20 08:44 Discharge Plan Disposition Patient Disposition: HOME Condition: Improving Discharge Details Reason For Visit: BILIARY DYSKINESIA/SEIZURE D/O Admit Date/Time: 02/12/20 09:24 Admit Provider: Isabelle Estrada Attending Provider: Isabelle Estrada [facility] Course: 24 y/o male was admitted following laparoscopic cholecystecomy due to biliary dyskinesia for concern for a history of increases seizure activity following surgical procedures. Patient did well over night, eating a regular diet without nausea or vomting. Abdominal pain was well controlled. No seizure activity was observed. Home Meds and New Rx's Prescriptions: New ibuprofen 600 mg tablet 600 mg PO Q6H PRNQty: 60 RF: 4 Continued divalproex 250 mg tablet,delayed release (DR/EC) 500 mg PO BID Qty: 360 RF: 3 clonidine HCl 0.1 MG tablet 2 tab PO HS Qty: 60 RF: 0 fluvoxamine 100 MG tablet 1 tab PO HS Qty: 30 RF: 0 trazodone 50 MG tablet 1 tab PO HS Qty: 90 RF: 0 clonidine HCl 0.1 MG tablet extended release 12 hr 2 tab PO .AM RF: 0 ibuprofen 200 MG tablet 400 mg PO Q8H PRNQty: 30 RF: 0 cholecalciferol (vitamin D3) [Vitamin D3] 1,000 unit Capsule 1,000 unit PO DAILY RF: 0 ondansetron 4 mg tablet,disintegrating 4 mg PO Q6H PRN (Reason: nausea and vomiting) Qty: 10 RF: 0 Discharge Instructions Additional Instructions: Care after Gallbladder Surgery -You should walk frequently, gradually, increasing the distance. You may climb stairs, just go slowly. -You can take Advil 600mg 4 times a day with food for the first week for pain; you may take your prescription medication as prescribed-in addition to the Advil. Discontinue Advil if it hurts your stomach. Do not take Advil if you are intolerant to aspirin products or have stomach problems. ? Use an ice bag for the first 72 hours. This helps to decrease swelling, which causes pain. It is normal to be more sore/painful and swollen towards the end of the day and first thing in the morning. ? Use milk of magnesia or prune juice to prevent constipation (this is a particular side effect of pain medication). Do not allow yourself to become constipated. ? Avoid fatty or greasy foods; introduce these slowly, with care, after about 1 month. Follow the low-fat diet sheet that will be given to you at the office or hospital. ? Start out eating very small, bland amounts of food. Do not take pain pills on an empty stomach. - You can take a shower 24 hrs after surgery ? Do not go swimming or sit in a hot tub for two weeks. ? There are no stitches to remove. ? Do not drive your car x72hrs and then only if you have no pain and can move freely. Do not drive if you are taking pain narcotic pain medications. ? You may resume sexual activity whenever pain and soreness subside, usually in 2 weeks. ? Do no lift anything over 5 lbs. for the first 10 days. Minimize strenuous activity for the next two weeks. ? You may return to work in one week, or when you feel able, provided you do not have to do any heavy lifting or prolonged standing. ? You should return to Dr. Estrada?s office for a post-op appointment about one week after surgery. Please call the Surgical Clinic at: [phone] to schedule an appointment. My Medications for pain are: ibuprofen and ultram When to Call the Office: ? If the incision becomes red or swollen, or there is more than a little drainage from it. ? If you develop a temperature higher than 100.5 F. ? If your eyes turn yellow ? Vomiting and can?t keep fluids down Activity:: see above Equipment/Supplies:: No Equipment Needed Diet:: see above Discharge Orders Discharge Orders: Discharge Order (Routine); Ordered 02/13/20 Ordered By: Kera Bush Discharge Data Discharge Date/Time-TO BE ENTERED AT DEPARTURE: 02/13/20 11:09 DS: Summary Status at Discharge Functional status at discharge: independent ambulation Overall status at discharge: patient is progressing back to baseline Mental Status: mental status grossly normal Speech and Movement: speech and movement normal Mood: congruent mood Affect: normal affect Exam Psych Mental Status: mental status grossly normal Speech and Movement: speech and movement normal Mood: congruent mood Affect: normal affect [facility] Medical History Abnormal CT scan, gallbladder ADHD Anxiety Autism Biliary dyskinesia Cognitive developmental delay Depression History of fracture of finger left index and middle History of wrist fracture Right OCD (obsessive compulsive disorder) PTSD (post-traumatic stress disorder) Seizures Per home care provider, states he has not had a seizure in 3 years Surgical History S/P ORIF (open reduction internal fixation) fracture R finger, 2019 Social History Smoking/Tobacco Use Status: Never Alcohol Intake: never Drug use: Never Substance use type: does not use Caregiver/Support person: Yes Household members: caregiver Number of Children: 0 current occupation: Disabled Current gender identity: male Do you feel safe at home: Yes Additional Social history: 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 ?. Mother's name is Cesia. He currently lives with home care provider Flaquito [facility]k ( as of 2018). Mr. Gomez graduated from a special needs high school at age 18. 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
--- NOTE | 2020-02-12 16:29 | MCONE_ITS ---
Date of service: 02/12/20 Time of Service: 16:29 Assessment and Plan Assessment and plan (1) Biliary dyskinesia: Status: Acute Assessment and plan: s/p lap erinn. Pain management per surgery. Encourage ambulation. (2) Seizures: Status: Chronic Assessment and plan: Cont home Gabapentin and Depakote. PRN Lorazepam for seizure activity. Mother reports use of Diastat (Valium injectable) at home prn prolonged seizure activity. He has what she describes as absence seizures where he gazes to the side and upward and at times has movement of fingers on one hand. (3) Psychiatric diagnosis: Status: Acute Assessment and plan: Mulitple psychiatric as well as developmental concerns. Cont home clonidine and Luvox History of Present Illness History of Present Illness Chief Complaint: biliary dyskinesia, seizure d.o. Narrative: This is a 24 yo male with a h/o seizure d.o., cognitive developmental delay, ADHD, Depression and anxiety, Autism, OCD, PTSD. He is s/p lap erinn on the day of this consult by Dr. Estrada. He had a post operative seizure after a previous surgery so precautions to be taken. No intraop or postop complications. He rates his pain as a 6-8/10. Pain in the RUQ and R scapular area. No nausea. Would like to eat. Consults Consult date: 02/12/20 Requesting physician: Isabelle Estrada Review of Systems All systems reviewed & are unremarkable except as noted in HPI and below PFSH Medical History Abnormal CT scan, gallbladder ADHD Anxiety Autism Biliary dyskinesia Cognitive developmental delay Depression History of fracture of finger left index and middle History of wrist fracture Right OCD (obsessive compulsive disorder) PTSD (post-traumatic stress disorder) Seizures Per home care provider, states he has not had a seizure in 3 years Surgical History S/P ORIF (open reduction internal fixation) fracture R finger, 2019 Social History Smoking/Tobacco Use Status: Never Alcohol Intake: never Drug use: Never Substance use type: does not use Caregiver/Support person: Yes Household members: caregiver Number of Children: 0 current occupation: Disabled Current gender identity: male Do you feel safe at home: Yes Additional Social history: 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 Mother's name is Cesia. He currently lives with home care provider Fla[facility]k ( as of 2018). Mr. Gomez graduated from a special needs high school at age 18. 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 Exam Const General: cooperative and no acute distress (Does not appear to be in discomfort) Nutritional Appearance: overweight Orientation: alert Eyes Sclera: sclerae normal Pupils: PERRL Resp Effort & Inspection: normal respiratory effort Auscultation: clear to auscultation bilaterally Cardio Rate: regular rate Rhythm: regular rhythm Heart Sounds: S1 normal and S2 normal GI Inspection: other (laparoscopic surgical sites with bandages in place. ) Palpation: soft (distended) Extrem General: no clubbing, cyanosis or edema Psych Appearance: grossly normal Speech and Movement: speech and movement normal Affect: blunted Attitude: cooperative Results Last Vital Signs Temp 36 C L 02/12/20 15:20 Pulse 68 02/12/20 15:20 Resp 24 02/12/20 14:40 BP 131/66 02/12/20 14:40 Pulse Ox 98 02/12/20 14:40
--- NOTE | 2020-02-12 19:01 | NUR.NOTE ---
Nursing Note: Spoke to Pharmacy. 0958 po 1000mg tylenol given KIMMIE PREOP. Then OR? gave 1000IV tylenol at 1230 per sugical flowsheet. Pharmacy recommends delaying 1800 dose to 2000 tonight.
[2020-02-12] MEDS: Divalproex 250 MG TABEC 500 MG PO (19:48)
[2020-02-12] MEDS: traMADol 50 MG TAB PO (19:48)
[2020-02-12] MEDS: cloNIDine 0.1 MG TAB 0.2 MG PO (21:10)
[2020-02-12] MEDS: traZODone 50 MG TAB PO (21:11)
[2020-02-13] MEDS: Ketorolac 30 MG/ML VIAL IVP ×2 (01:24→08:44)
[2020-02-13] MEDS: Acetaminophen 500 MG TAB 1000 MG PO ×2 (01:24→08:42)
--- NOTE | 2020-02-13 07:47 | W.PM.PROGNOT ---
Date of Service Date of service: 02/13/20 Time of Service: 07:47 Assessment and Plan Assessment and plan (1) Biliary dyskinesia: Status: Acute Assessment and plan: POD #1 s/p laparscopic Cholecystectomy Patient is tolerating regular diet, without any nausea or vomiting. (+) Flatus, Good bowel sounds Pain is well controlled, with mild soreness around incision sites. No seizure activity was noted over night. P// D/C home later today. (2) Psychiatric diagnosis: Status: Acute Subjective Subjective Interval history since last seen: Denis states he slept well overnight. He is passing flatus. Tolerating regular diet. Denies nausea or vomiting. Mild abdominal discomfort surrounding his incision sites. Exam Const General: cooperative, healthy appearing and comfortable Orientation: alert and oriented x3 Resp Effort & Inspection: normal respiratory effort, no audible wheezes and no cough Auscultation: clear to auscultation bilaterally GI Inspection: normal to inspection and incision (Covered with bandaids x 4) Palpation: soft, no guarding and tender in the RUQ Auscultation: normal bowel sounds Objective Last Vital Signs Temp 36 C L 02/12/20 15:20 Pulse 71 02/12/20 19:00 Resp 18 02/12/20 23:35 BP 154/81 H 02/12/20 19:00 Pulse Ox 97 02/12/20 23:35
[2020-02-13 08:34] VITALS: BP 138/73; PULSE 65; O2SAT 96
--- NOTE | 2020-02-13 08:39 | INITIAL_ITS ---
- If Service Date Differs Date of service: 02/13/20 Time of Service: 08:40 Care Management Initial Assess REASON FOR HOSPITALIZATION:: Biliary Dyskinesia/Seizure PAST MEDICAL HISTORY/PAST SURGICAL HISTORY:: Medical History . ADHD (Chronic). Anxiety (Chronic). Autism (Chronic). Depression (Chronic). OCD (obsessive compulsive disorder) (Chronic). PTSD (post-traumatic stress disorder) (Chronic). History of fracture of finger (Resolved). History of wrist fracture PREVIOUS FUNCTIONAL STATUS/SOCIAL/FAMILY SUPPORTS:: francine lives in [place] with his senior care provider, Flaquito [facility]k, and one additional resident. He is currently unemployed. 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 Denis has a guardian through the Office of Public Guardianship. Her name is Willard . ADVANCE DIRECTIVES:: Denis has a guardian: Bessy Mayo CODE STATUS:: Full Code
[2020-02-13] MEDS: Divalproex 250 MG TABEC 500 MG PO (08:43)
--- NOTE | 2020-02-13 09:58 | W.NUTRFU ---
Date of service: 02/13/20 Time of Service: 09:58 Nutritional Follow up NOTE: 24 year old male s/p lap erinn. Following Lowfat diet with adequate intake. BMI indicates mild obesity. Not at nutritional risk at this time. will continue to follow. Time Spent in Nutritional Counseling and Treatment: 0 time spent face to face
[2020-02-13 10:29] VITALS: BP 133/74; PULSE 63; O2SAT 96
[2020-02-13 10:36] VITALS: TEMP 36.8
== END 2020-02-13 11:09 | disposition home or self-care (01) | DRG 418 ==
LOC: PDS 10:32 → ICU 15:18
PROVIDERS: Admitting Provider Surgery; PCP Family Medicine; Visit Provider Surgery
PROC: 0FT44ZZ Resection of Gallbladder, Percutaneous Endoscopic Approach (ICD-10-PCS; CPT 47562; principal; 2020-02-12 10:15)
DX: K81.1 Chronic cholecystitis (principal); F84.0 Autistic disorder; G40.909 Epilepsy, unspecified, not intractable, without status epilepticus; F79 Unspecified intellectual disabilities
CPT/HCPCS: 47562; 99232; 99238; NC; 88304; 99221; J0131; J1100; J1885; J2001; J2250; J2405; J2704; J3475

== ENCOUNTER 2020-04-04 10:39 | Outpatient (REF) | payer MEDICAID, SELFPAY ==
[2020-04-04 18:37] LABS: VALPROIC ACID 108.9 ug/mL (50-100)
[2020-04-09 12:05] LABS: HIV-1/2 Ag & Ab Screen Negative (Negative)
[2020-04-23 15:08] LABS: Hepatitis C Ab w Rflx HCV PCR Negative (Negative)
== END 2020-04-04 10:59 ==
LOC: NCHCN 10:39
PROVIDERS: PCP Family Medicine; Visit Provider Family Medicine
DX: Z00.00 Encounter for general adult medical examination without abnormal findings (principal); Z51.81 Encounter for therapeutic drug level monitoring
CPT/HCPCS: 86803; 87389; 80164

== ENCOUNTER 2021-04-09 19:39 | Outpatient (REF) | payer MEDICAID, SELFPAY ==
[2021-04-09 18:48] LABS: HCT 47.2 % (40.0-50.0); HGB 16.6 g/dL (13.5-17.5); MCH 30.3 pg (27.0-33.0); MCHC 35.2 % (32.0-36.0); MCV 86.3 fL (80-95); MPV 12.9 fL (8.0-11.0); Platelet Count 177 10^3/uL (130-400); RBC 5.47 10^6/uL (4.36-5.78); RDW 13.1 % (11.8-14.1); RDW-SD 40.5 fL; WBC 5.99 10^3/uL (4.4-10.8)
[2021-04-09 19:34] LABS: Hemoglobin A1C 5.7 % (<5.7)
== END 2021-04-09 19:40 | disposition home or self-care (01) ==
LOC: NCHCN 19:39
PROVIDERS: PCP Family Medicine; Visit Provider Family Medicine
DX: D69.6 Thrombocytopenia, unspecified (principal); Z51.81 Encounter for therapeutic drug level monitoring; Z00.00 Encounter for general adult medical examination without abnormal findings
CPT/HCPCS: 80053; 80061; 85027; 80164; 83036

== ENCOUNTER 2022-02-05 04:54 | Outpatient (CLI) | payer MEDICAID, SELFPAY ==
--- NOTE | 2022-02-10 08:44 | PDOC.EEG_ITS ---
Neurology EEG EEG: [facility] Department of Neurology LONG-TERM AMBULATORY EEG REPORT Date of Recordin02/05/22 at 15:29:42 to 02/06/22 at 14:08:37 Interpreting Physician: Dr. Lakeisha Freire PCP/Referring Provider: Dr. Flaquito David Reason for study: Denis is a 26 year-old with presumed epilepsy and no events since 2014. Evaluation done to see if he can come off his anti-seizure medications. Current Medications: Home Medications Medication Instructions Recorded Confirmed Type clonidine HCl 0.1 mg tablet 2 tab PO HS #60 tabs 08/26/12 12/18/21 History fluvoxamine 100 mg tablet 1 tab PO HS #30 tabs 08/26/12 12/18/21 History clonidine HCl 0.1 mg 2 tab PO .AM 09/08/13 12/18/21 History tablet,extended release,12 hr cholecalciferol (vitamin D3) 25 1,000 unit PO DAILY 11/02/18 09/18/21 History mcg (1,000 unit) capsule (Vitamin D3) trazodone 100 mg tablet 100 mg PO QHS PRN 09/19/20 12/18/21 History divalproex 250 mg tablet,delayed 500 mg PO BID #360 tabs 08/05/21 12/18/21 Rx release METHODS: An 18-channel digitized electroencephalogram was recorded in the ambulatory setting with video. The 10/20 international system of electrode placement was used and bipolar and referential electrode montages were recorded. In addition to EEG the patient was monitored for EKG and by video. Activation procedures of photic stimulation and hyperventilation were performed if applicable. The duration of the recording was 22.5 hours. DESCRIPTION OF EEG: Waking background activity: During maximal wakefulness a 9-Hz posterior background rhythm was present which was well-modulated, symmetrical, reactive to eye opening, and of moderate voltage. Faster frequencies were present in the bilateral anterior head regions. There was a normal anterior-posterior voltage gradient. Drowsy and sleeping background activity: During drowsiness, there was attenuation of the posterior dominant background rhythm and vertex waves. Normal stage II and III sleep was present with symmetrical sleep spindles, K- complexes, and vertex waves with slowing of the background rhythm to delta/theta frequencies. REM sleep manifested by rapid lateral eye movements and faster background rhythms was recorded. Arousal was unremarkable. Interictal abnormalities: none. Ictal findings: No events recorded. Activating Procedures: Photic stimulation was performed which produced no posterior driving response. Hyperventilation was not performed. EKG: EKG revealed normal sinus rhythm. INTERPRETATION: This long-term EEG is normal during the awake and sleep states as well as during the activation procedure. [place] EEG[place] [facility] [place] normal with nonspecific sharp transients in sleep, no definite epileptiform activity, and no seizures recorded. CLINICAL CORRELATION: No focal regions of cerebral dysfunction or epileptiform activity was present. Epilepsy remains a clinical diagnosis and a normal EEG does not rule out epilepsy. Clinical correlation is advised. Lakeisha Freire MD
== END 2022-02-05 04:55 | disposition home or self-care (01) ==
LOC: RT 04:54
PROVIDERS: PCP Family Medicine; Visit Provider Psychiatry & Neurology Neurology
DX: R41.89 Other symptoms and signs involving cognitive functions and awareness (principal)
CPT/HCPCS: 95714

== ENCOUNTER 2022-04-10 16:00 | Outpatient (REF) | payer MEDICAID, SELFPAY ==
[2022-04-10 18:39] LABS: HCT 46.2 % (40.0-50.0); HGB 16.3 g/dL (13.5-17.5); MCH 31.7 pg (27.0-33.0); MCHC 35.3 % (32.0-36.0); MCV 90 fL (80-95); MPV 12.2 fL (8.0-11.0); Platelet Count 181 10^3/uL (130-400); RBC 5.15 10^6/uL (4.36-5.78); RDW 12.9 % (11.8-14.1); RDW-SD 42.2 fL; WBC 6.84 10^3/uL (4.4-10.8)
[2022-04-10 18:48] LABS: ALT 30 U/L (16-63); AST 19 U/L (15-37); Albumin 4.1 g/dL (3.4-5.0); Alkaline Phosphatase 83 U/L (46-116); Anion Gap 7.6 mmol/L (3-11); BUN 9 mg/dL (7-18); Bilirubin, Total 0.4 mg/dL (0.2-1.0); CO2 28.4 mmol/L (21.0-32.0); Calcium 9.4 mg/dL (8.5-10.1); Chloride 101 mmol/L (98-107); Estimated GFR 105.14 (mL/min/1.73m2); Glucose 89 mg/dL (74-106); Potassium 4.1 mmol/L (3.5-5.1); Sodium 137 mmol/L (136-145); Total Protein 8.2 g/dL (6.4-8.2)
[2022-04-10 19:05] LABS: Hemoglobin A1C 5.3 % (<5.7)
== END 2022-04-10 16:01 | disposition home or self-care (01) ==
LOC: NCHCN 16:00
PROVIDERS: PCP Family Medicine; Visit Provider Family Medicine
DX: R73.03 Prediabetes (principal); D69.6 Thrombocytopenia, unspecified; Z51.81 Encounter for therapeutic drug level monitoring; Z00.00 Encounter for general adult medical examination without abnormal findings
CPT/HCPCS: 80053; 85027; 83036

== ENCOUNTER 2024-11-02 11:20 | Outpatient (REF) | payer MEDICAID, SELFPAY ==
[2024-11-02 16:06] LABS: Calculated LDL 114 mg/dL (<100); Cholesterol 169 mg/dL (<200); HDL Cholesterol 36 mg/dL (>or=40); Triglyceride 99 mg/dL (<150); Vitamin B12 261 pg/mL (193-986); Vitamin D 25 Total 54 ng/mL (30-100)
== END 2024-11-02 11:21 | disposition home or self-care (01) ==
LOC: NCHCN 11:20
PROVIDERS: PCP Family Medicine; Visit Provider Student in an Organized Health Care Education/Training Program
DX: Z13.220 Encounter for screening for lipoid disorders (principal); R56.9 Unspecified convulsions; E55.9 Vitamin D deficiency, unspecified
CPT/HCPCS: 80061; 82306; 82607